=== PATIENT | male | born 1945 | race Two or more races ===

== ENCOUNTER 2023-11-09 07:34 | Inpatient (IN) | payer OTHER, MEDICAID ==
[~2023-11-09] VITALS: Ht 167.6 cm; Wt 76.5 kg
[2023-11-09] MEDS ORDERED: MELO7.5T7 PO (08:42)
[2023-11-09 10:07] LABS: Basophils # (auto) 0 10 ^3/uL (0-0.2); Basophils % (auto) 0.4 % (0.0-2.0); Eosinophils # (auto) 0.3 10 ^3/uL (0-0.8); Eosinophils % (auto) 2.9 % (0.0-7.0); Hematocrit 41.6 % (41.0-53.0); Hemoglobin 13.7 g/dL (13.5-17.5); Lymphocytes # (auto) 1.8 10 ^3/uL (0.4-5.4); Lymphocytes % (auto) 16.5 % (10.0-50.0); Mean Corpuscular Hemoglobin 27.2 pg (28.0-32.0); Mean Corpuscular Hgb Conc. 32.9 g/dL (32.0-36.0); Mean Corpuscular Volume 82.6 fL (80.0-100.0); Monocytes # (auto) 0.8 10 ^3/uL (0-1.3); Monocytes % (auto) 7.8 % (0.0-12.0); Neutrophils # (auto) 7.8 10 ^3/uL (1.6-8.6); Neutrophils % (auto) 72.4 % (37.0-80.0); Nucleated Red Blood Cells % 0.1 %; Red Blood Cells 5.03 10^6/uL (4.5-5.90); Red Cell Distribution Width 15.2 % (11.8-14.3); White Blood Cell 10.8 10^3/uL (4.4-10.8)
[2023-11-09 10:20] LABS: Alanine Aminotransferase 25 U/L (7-40); Albumin 4.5 g/dL (3.2-4.8); Alkaline Phosphatase 106 U/L (46-116); Anion Gap 8 (5-15); Aspartate Aminotransferase 17 U/L (13-40); BUN/Creatinine Ratio 11.4 (10.0-20.0); Bilirubin, Total 0.8 mg/dL (0.2-1.0); Blood Urea Nitrogen 9 mg/dL (9-23); Carbon Dioxide 26 mmol/L (20-30); Chloride 105 mmol/L (98-107); Glucose 111 mg/dL (74-106); Potassium 4.3 mmol/L (3.5-5.1); Sodium 139 mmol/L (136-145); Total Protein 7.2 g/dL (5.7-8.2)
[2023-11-09] MEDS ORDERED: ONDANSETRON HCL 4 MG/2 ML VIAL IV PRN (11:45)
[2023-11-09] MEDS ORDERED: DOCUSATE SOD 100 MG CAP PO PRN ×2 (11:45→12:15)
[2023-11-09] MEDS ORDERED: MORPHINE SULFATE INJ 2 MG/ml SYRG IV PRN ×2 (11:45→12:15)
[2023-11-09] MEDS: SODIUM CHLORIDE 0.9% 1,000 ML IV SCH (11:45)
[2023-11-09] MEDS ORDERED: NITROGLYCERIN 0.4 MG SL TAB SL PRN (12:15)
[2023-11-09 13:18] LABS: INR 1.05 (0.9-1.15); Prothrombin Time 11.1 sec (9.3-11.8)
[2023-11-09 15:17] VITALS: PULSE 75; RESP 13; O2SAT 95
[2023-11-09] MEDS: ONDANSETRON HCL 4 MG/2 ML VIAL IV PRN (19:05)
[2023-11-09] MEDS: MORPHINE SULFATE INJ 2 MG/ml SYRG IV PRN (19:05)
[2023-11-09] MEDS: ONDANSETRON HCL 4 MG/2 ML VIAL ONE (19:15)
[2023-11-09] MEDS: MORPHINE SULFATE INJ 2 MG/ml SYRG ONE (19:15)
[2023-11-09 20:00] VITALS: PULSE 77; RESP 15; O2SAT 94
[2023-11-09 21:50] VITALS: BP 199/95; PULSE 78; RESP 20; TEMP 97.9; O2SAT 95
[2023-11-09] MEDS ORDERED: LISI20TA56 PO (22:30)
[2023-11-09] MEDS ORDERED: MET50T PO (22:30)
[2023-11-09] MEDS ORDERED: POM INH (22:30)
[2023-11-09 22:32] VITALS: BP 199/95; PULSE 78; RESP 19; RESP 20; TEMP 97.9; O2SAT 95
[2023-11-09] MEDS: hydrALAZINE HCL 20 MG/ML VL IV PRN (23:51)
[2023-11-10] VITALS (7 sets, daily range): BP systolic 135–187; BP diastolic 79–96; PULSE 81–99; RESP 16–20; TEMP 97.5–98.4; O2SAT 92–99
[2023-11-10 06:23] LABS: Urine Bacteria None Seen /hpf (None Seen)
[2023-11-10 06:31] LABS: Basophils # (auto) 0.1 10 ^3/uL (0-0.2); Basophils % (auto) 0.6 % (0.0-2.0); Eosinophils # (auto) 0.5 10 ^3/uL (0-0.8); Eosinophils % (auto) 4.9 % (0.0-7.0); Hematocrit 39.6 % (41.0-53.0); Hemoglobin 13.2 g/dL (13.5-17.5); Lymphocytes # (auto) 2.2 10 ^3/uL (0.4-5.4); Lymphocytes % (auto) 22.8 % (10.0-50.0); Mean Corpuscular Hemoglobin 27.7 pg (28.0-32.0); Mean Corpuscular Hgb Conc. 33.4 g/dL (32.0-36.0); Mean Corpuscular Volume 83.1 fL (80.0-100.0); Monocytes # (auto) 0.7 10 ^3/uL (0-1.3); Monocytes % (auto) 7.9 % (0.0-12.0); Neutrophils % (auto) 63.8 % (37.0-80.0); Nucleated Red Blood Cells % 0.3 %; Red Blood Cells 4.77 10^6/uL (4.5-5.90); Red Cell Distribution Width 15.7 % (11.8-14.3); White Blood Cell 9.5 10^3/uL (4.4-10.8)
[2023-11-10 06:38] LABS: Alanine Aminotransferase 18 U/L (7-40); Albumin 4.1 g/dL (3.2-4.8); Alkaline Phosphatase 103 U/L (46-116); Anion Gap 9 (5-15); Aspartate Aminotransferase 14 U/L (13-40); BUN/Creatinine Ratio 10.8 (10.0-20.0); Bilirubin, Total 0.9 mg/dL (0.2-1.0); Blood Urea Nitrogen 8 mg/dL (9-23); Calcium 9.6 mg/dL (8.5-10.1); Carbon Dioxide 24 mmol/L (20-30); Chloride 105 mmol/L (98-107); Glucose 111 mg/dL (74-106); Potassium 3.7 mmol/L (3.5-5.1); Sodium 138 mmol/L (136-145); Total Protein 6.6 g/dL (5.7-8.2)
[2023-11-10] MEDS ORDERED: DexAMETHasone SOD PHOS 4 MG/1ML SDV INJ ONE (06:41)
[2023-11-10] MEDS ORDERED: BUPIVACAINE 0.25% INJ 50ML VIAL ONE (06:41)
[2023-11-10] MEDS ORDERED: EPINEPHrine HCL 1 MG/1 ML AMP ONE (06:41)
[2023-11-10] MEDS ORDERED: ONDANSETRON HCL 4 MG/2 ML VIAL ONE (06:53)
[2023-11-10] MEDS ORDERED: KETOROLAC TROMETH 30 MG/ML 1ML VIAL ONE (06:53)
[2023-11-10] MEDS ORDERED: LIDOCAINE 1% INJ PF 5ML AMP ONE (06:53)
[2023-11-10] MEDS ORDERED: KETAMINE 50mg/ML 1ml syringe ONE (06:53)
[2023-11-10] MEDS ORDERED: fentaNYL CITRATE 100 MCG/2 ML VL ONE (06:53)
[2023-11-10] MEDS ORDERED: GLYCOPYRROLATE 0.2 MG/ML 1ML VIAL ONE (06:53)
[2023-11-10] MEDS ORDERED: DexAMETHasone SOD PHOS 10MG/1ML VIAL INJ ONE (06:53)
[2023-11-10] MEDS ORDERED: PROPOFOL 10 MG/ML 20 ML IV ONE (06:53)
[2023-11-10] MEDS ORDERED: LIDOCAINE 2%HCL (LOCAL ANESTH.) INJ 10ml MDV ONE (07:00)
[2023-11-10 07:01] LABS: Urine Blood Negative /uL (Negative); Urine Clarity Clear (Clear); Urine Color Yellow (Yellow); Urine Protein, UAD Negative (Negative); Urine Specific Gravity 1.014 (1.001-1.035); Urine Urobilinogen Normal (Negative); Urine WBC 1 /hpf (0 - 3)
[2023-11-10] MEDS ORDERED: GABAPENTIN 100 MG CAP PO ONE (07:15)
[2023-11-10] MEDS ORDERED: ACETAMINOPHEN IV 1000 MG/100ML (10MG/ML) IV ONE (07:15)
[2023-11-10] MEDS ORDERED: CELECOXIB 100 MG CAP PO ONE (07:15)
[2023-11-10] MEDS ORDERED: ceFAZolin 2 GM/D5W50ml 50 ML IV ONE (07:20)
[2023-11-10] MEDS ORDERED: ACETAMINOPHEN IV 100 ML IV ONE (07:20)
[2023-11-10] MEDS ORDERED: CELECOXIB 100 MG CAP ONE (07:21)
[2023-11-10] MEDS ORDERED: GABAPENTIN 100 MG CAP ONE (07:21)
[2023-11-10] MEDS ORDERED: LISINOPRIL 20 MG TAB PO ONE (16:45)
[2023-11-10] MEDS ORDERED: METOPROLOL TARTRATE 50 MG TAB PO ONE (16:45)
[2023-11-11] VITALS (10 sets, daily range): BP systolic 133–184; BP diastolic 74–106; PULSE 75–90; RESP 14–18; TEMP 97.2–99; O2SAT 94–98
[2023-11-11] MEDS ORDERED: METOPROLOL TARTRATE 50 MG TAB PO SCH (10:00)
[2023-11-11] MEDS: LISINOPRIL 20 MG TAB PO SCH (10:04)
[2023-11-11] MEDS: METOPROLOL SUCCINATE XL 50 MG TAB PO SCH (10:05)
[2023-11-11 11:33] LABS: INR 1.09 (0.9-1.15); Partial Thromboplastin Time 27.8 SEC (24.5-34.5); Prothrombin Time 11.5 sec (9.3-11.8)
[2023-11-11] MEDS ORDERED: ceFAZolin 2 GM/D5W50ml 50 ML IV ONE (11:36)
[2023-11-11] MEDS ORDERED: LIDOCAINE W/ EPINEPHRINE 1% 20ML VIAL ONE ×2 (11:42→17:34)
[2023-11-11] MEDS ORDERED: fentaNYL CITRATE 100 MCG/2 ML VL ONE (11:51)
[2023-11-11] MEDS ORDERED: MIDAZOLAM HCL 2MG/2ML 2ml VIAL (1mg/ml) ONE (11:51)
[2023-11-11] MEDS ORDERED: PROPOFOL 10 MG/ML 20 ML IV ONE (11:52)
[2023-11-11] MEDS ORDERED: ONDANSETRON HCL 4 MG/2 ML VIAL ONE (11:53)
[2023-11-11] MEDS ORDERED: LIDOCAINE 1% INJ PF 5ML AMP ONE (11:53)
[2023-11-11] MEDS ORDERED: HYDROmorphone HCL 2 MG/ML VL/or syr IV PRN (12:45)
[2023-11-11] MEDS ORDERED: ONDANSETRON HCL 4 MG/2 ML VIAL IV ONE (12:45)
[2023-11-11] MEDS: D5W/SOD CHL 0.45%/KCL 20MEQ 1,000 ML IV SCH (13:00)
[2023-11-11] MEDS: HYDROmorphone HCL 2 MG/ML VL/or syr IV PRN (13:08)
[2023-11-11] MEDS ORDERED: ceFAZolin 1GM/50ML 50 ML IV SCH (14:00)
[2023-11-11] MEDS: ceFAZolin 1GM/50ML 50 ML IV SCH (21:17)
[2023-11-12] VITALS (8 sets, daily range): BP systolic 108–153; BP diastolic 62–96; PULSE 85–103; RESP 16–20; TEMP 36.7; O2SAT 91–95
[2023-11-12] MEDS ORDERED: HYDR-4902 PO (10:35)
== END 2023-11-12 13:50 | disposition home or self-care (01) | DRG 511 ==
LOC: ER 07:39 → OVERFLOW 12:06 → EAST 21:50
PROVIDERS: ADMIT Nurse Practitioner Family; ATTEND Family Medicine
PROC: 0PSH04Z Reposition Right Radius with Internal Fixation Device, Open Approach (ICD-10-PCS; principal; 2023-11-11 11:48)
DX: S52.91XA Unspecified fracture of right forearm, initial encounter for closed fracture (principal); I16.1 Hypertensive emergency; S52.611A Displaced fracture of right ulna styloid process, initial encounter for closed fracture; J45.909 Unspecified asthma, uncomplicated; E66.9 Obesity, unspecified; I10 Essential (primary) hypertension; Z85.46 Personal history of malignant neoplasm of prostate; Z68.27 Body mass index [BMI] 27.0-27.9, adult; Z82.49 Family history of ischemic heart disease and other diseases of the circulatory system; W18.39XA Other fall on same level, initial encounter; Y93.89 Activity, other specified; Y92.89 Other specified places as the place of occurrence of the external cause; Y99.8 Other external cause status
CPT/HCPCS: 36415; 71045; 73100; 76000; 80053; 81001; 85025; 85610; 85730; 86850; 86900; 86901; 93005; 93306; G0378; J0131; J0171; J1100; J1885; J2001; J2250; J2405; J2704; J3490

== ENCOUNTER → 2024-04-25 | Outpatient (CLI) | payer OTHER, MEDICAID ==
[~2024-04-25] MED LIST: HYDR-4902 PO; LISI20TA56 PO; MET50T PO; POM INH
[2024-04-25 09:00] LABS: Urine Bacteria None Seen /hpf (None Seen); Urine WBC None Seen /hpf (0 - 3)
[2024-04-25 09:03] LABS: Basophils # (auto) 0 10 ^3/uL (0-0.2); Basophils % (auto) 0.6 % (0.0-2.0); Eosinophils # (auto) 0.3 10 ^3/uL (0-0.8); Eosinophils % (auto) 3.4 % (0.0-7.0); Hematocrit 43.7 % (41.0-53.0); Hemoglobin 14.6 g/dL (13.5-17.5); Lymphocytes # (auto) 2.3 10 ^3/uL (0.4-5.4); Lymphocytes % (auto) 26.8 % (10.0-50.0); Mean Corpuscular Hemoglobin 28.1 pg (28.0-32.0); Mean Corpuscular Hgb Conc. 33.3 g/dL (32.0-36.0); Mean Corpuscular Volume 84.2 fL (80.0-100.0); Monocytes # (auto) 0.6 10 ^3/uL (0-1.3); Monocytes % (auto) 7.4 % (0.0-12.0); Neutrophils # (auto) 5.3 10 ^3/uL (1.6-8.6); Neutrophils % (auto) 61.8 % (37.0-80.0); Nucleated Red Blood Cells % 0.1 %; Platelet Count (auto) 245 10^3/uL (140-450); Red Cell Distribution Width 14.7 % (11.8-14.3); White Blood Cell 8.5 10^3/uL (4.4-10.8)
[2024-04-25 09:13] LABS: Urine Blood Negative /uL (Negative); Urine Clarity Clear (Clear); Urine Color Light-Yellow (Yellow); Urine Protein, UAD TRACE (Negative); Urine Specific Gravity 1.015 (1.001-1.035); Urine Urobilinogen Normal (Negative); Urine pH 5.5 (5.0-9.0)
[2024-04-25 10:05] LABS: Calcium 10.4 mg/dL (8.7-10.4); Chloride 105 mmol/L (98-107); Potassium 4.5 mmol/L (3.5-5.1); Sodium 138 mmol/L (136-145)
[2024-04-25 10:06] LABS: Anion Gap 5 (5-15); Carbon Dioxide 28 mmol/L (20-31)
[2024-04-25 10:11] LABS: BUN/Creatinine Ratio 10.9 (10.0-20.0); Blood Urea Nitrogen 10 mg/dL (9-23)
[2024-04-25 10:12] LABS: Glucose 127 mg/dL (74-106)
== END | disposition home or self-care (01) ==
LOC: LAB 08:42
PROVIDERS: ATTEND Student in an Organized Health Care Education/Training Program
DX: I10 Essential (primary) hypertension (principal); E11.9 Type 2 diabetes mellitus without complications
CPT/HCPCS: 36415; 80048; 81001; 83036; 85025

== ENCOUNTER 2024-07-04 12:56 | Inpatient (IN) | payer OTHER, MEDICAID ==
[~2024-07-04] VITALS: Ht 157.5 cm; Wt 154.0 kg
[2024-07-04] MEDS: ASPirin-EC 325mg tab PO ONE (13:15)
--- NOTE | 2024-07-04 13:17 | ED.PDOC ---
HPI Comments HPI: 79 y/o M, presents to the ED for CC of chest pain. Patient states, that he has been experiencing right sided chest pain that radiates to his lower back x30 min following gardening at home. Patient describes, pain to be pressure like in sensation. Patient comments on, new onset symptoms of nausea following episode. Patient denies fatigue, weakness, headache, numbness or weakness. No other symptoms or modifying factors at this time. Initial Vital Signs: Temp : 97.6 BP: 125/92 HR: 59 RR: 18 SpO2: 94 Past Medical History: HTN Past Surgical History: HAND, PROSTATE, HERNIA Social History: Denies smoking, ETOH, or drug use. Medications: LISINOPRIL Allergies: OBINNADA Minh Garcia: HPI: Poor Historian. Past Medical History: Past Surgical History: REVIEW OF SYSTEMS: CONSTITUTIONAL: Denies acute: fever, diaphoresis, chills, HEAD: Denies acute: headache, photophobia Eyes: Denies acute: Double vision, vision loss, eye pain, eye discharge. EARS: Denies acute: tinnitus, hearing loss, ear discharge, ear pain, THROAT: Denies acute: sore throat, swelling, difficulty swallowing , pain with swallowing, change in voice. NECK: Denies acute: neck pain, neck swelling, stiff neck. HEART: Denies acute : , palpitations, LUNGS: Denies acute: SOB, wheezing, cough, hemoptysis ABDOMEN: Denies acute: abdominal pain, , Vomiting, diarrhea, melena , hematemesis, hematochezia SKIN: Denies acute: rash, redness, lesions, itchiness. EXTREMITIES: Denies acute: calf pain, numbness, tingling, weakness, denies pain in extremity. Denies acute: Low back pain. Neuro: Denies acute: focal neurological deficit, motor or sensory focal neurological deficit, tremors, seizure like activity, confusion, , change in mental status, loss of bowel or bladder function, cauda equina like symptoms. : Denies acute: dysuria, hematuria, flank pain, increase in urinary frequency. PSYCH: Denies acute: hallucination, suicidal ideation, homicidal ideation. PHYSICAL EXAM: General: [id number] acute distress, awake and alert. Head: normocephalic, atraumatic. Neck: supple, trachea is midline, no swelling. Throat: Normal phonation. Eyes:, no erythema, no purulent discharge, no proptosis, no icterus. Heart: regular rate, regular rhythm, no significant murmur appreciated. Lungs: no apparent respiratory distress, Able to speak in full sentences. No wheezing, no rhonchi, no crackles. No stridors Clear to auscultation bilaterally. Abdomen: non tender to palpation, non distended, soft, no guarding, no rebound, + bowel sounds. Neuro: Awake, Alert, oriented to name, self, situation, follows commands GCS=15. Speech is normal. Skin: no petechia, no purpura, no cyanosis, non-pale, not jaundice. Lower extremities: --trace- Pitting edema no deformity, no focal swelling, no calf TTP. Makes eye contact. moves all four extremities. Face: no apparent facial droop. Ambulating in the ED independently. With a cane ED COURSE: Chief Complaint: Chest Pain Time Seen by MD: 13:10 Primary Care Provider: UNKNOWN Reviewed Notes: Nurses Notes, Medications, Allergies Allergies: Coded Allergies: NO KNOWN ALLERGIES (Unverified , 11/09/23) Home Meds Active Scripts Hydrocodone-Acetaminophen (Hydrocodone Bitartrate/AC 5-325 mg) 1 Tab Tab, 1 TAB PO Q6HR PRN, #30 TAB Prov:SUSHANT STEVENSON MD 11/12/23 Reported Medications Patients Own Medication (PATIENTS OWN MEDICATION) ., 100 MCG INH PTS OWN MED-OBTAIN FROM PT AND SEND TO RX DRUG: FREQ: RX# EXP: DATE DISP: TECH: RPH: 11/09/23 Metoprolol Tartrate (LOPRESSOR TABLET) 50 Mg Tb, 1 TAB PO DAILY 11/09/23 Lisinopril (Lisinopril) 20 Mg Tab, 1 TAB PO DAILY 11/09/23 Information Source: Patient Mode of Arrival: Ambulatory Severity: Moderate Timing: Minutes Duration: Since onset Prehospital treatment: None Location: Chest (R) Radiation: Back Quality: Pressure Onset: With Light Exertion Cardiac Risk Factors: None PE Risk Factors: None History of: None Modifying Factors: Nothing Associated Signs and Symptoms: None Was a procedure done? Was a procedure done?: No CP Differential Dx Differential Diagnosis: N/A Differential Diagnosis: Other (Ddx include but not limitied to gastritis, musculoskeletal pain, radiculopathy, atypical chest pain, dissection, aneurysm, ACS, unstable angina, hiatal hernia, GERD, anxiety, costochondritis, PE, pneumothroax, neoplasm, cardiac ischemia, drug abuse, anemia.) X-Ray, Labs, Meds, VS Vital Signs Date Time Temp Pulse Resp B/P (MAP) Pulse Ox O2 Delivery O2 Flow Rate FiO2 07/04/24 20:35 98.0 54 18 128/77 (94) 92 98.0 07/04/24 19:40 61 07/04/24 16:03 59 07/04/24 13:48 54 07/04/24 13:11 97.6 59 18 125/90 (102) 94 134/73 (93) 07/04/24 13:02 61 Lab Test 07/04/24 17:39 07/04/24 15:26 07/04/24 13:02 Range/Units Troponin I High Sensitivity 264 *H 75 *H 14 </=54 ng/L White Blood Count 14.2 H 4.4-10.8 10^3/uL Red Blood Count 5.45 4.5-5.90 10^6/uL Hemoglobin 14.6 13.5-17.5 g/dL Hematocrit 45.0 41.0-53.0 % Mean Corpuscular Volume 82.6 80.0-100.0 fL Mean Corpuscular Hemoglobin 26.7 L 28.0-32.0 pg Mean Corpuscular Hemoglobin Concent 32.4 32.0-36.0 g/dL Red Cell Distribution Width 15.5 H 11.8-14.3 % Platelet Count 302 140-450 10^3/uL Mean Platelet Volume 8.8 6.9-10.8 fL Neutrophils (%) (Auto) 61.4 37.0-80.0 % Lymphocytes (%) (Auto) 29.8 10.0-50.0 % Monocytes (%) (Auto) 6.7 0.0-12.0 % Eosinophils (%) (Auto) 1.7 0.0-7.0 % Basophils (%) (Auto) 0.4 0.0-2.0 % Neutrophils # (Auto) 8.7 H 1.6-8.6 10 ^3/uL Lymphocytes # (Auto) 4.2 0.4-5.4 10 ^3/uL Monocytes # (Auto) 1.0 0-1.3 10 ^3/uL Eosinophils # (Auto) 0.2 0-0.8 10 ^3/uL Basophils # (Auto) 0.1 0-0.2 10 ^3/uL Nucleated Red Blood Cells 0.1 % Sodium Level 140 136-145 mmol/L Potassium Level 3.7 3.5-5.1 mmol/L Chloride Level 106 98-107 mmol/L Carbon Dioxide Level 22 20-31 mmol/L Anion Gap 12 5-15 Blood Urea Nitrogen 11 9-23 mg/dL Creatinine 1.07 0.700-1.30 mg/dL Glomerular Filtration Rate Calc 71 >90 mL/min BUN/Creatinine Ratio 10.3 10.0-20.0 Serum Glucose 179 H 74-106 mg/dL Calcium Level 10.3 8.7-10.4 mg/dL Total Bilirubin 0.7 0.2-1.0 mg/dL Aspartate Amino Transferase (AST) 26 13-40 U/L Alanine Aminotransferase (ALT) 33 7-40 U/L Alkaline Phosphatase 88 46-116 U/L Total Protein 7.3 5.7-8.2 g/dL Albumin 4.8 3.2-4.8 g/dL [place] [id number] Ph: [phone] DIAGNOSTIC IMAGING Diagnostic Imaging Report : [id number] Signed PATIENT: JENNIFER SEECCT: [id number] UNIT: [id number] : 1945 LOC: ER ROOM / BED: / AGE / SEX: 79 / M ADM STATUS: REG ER SERVICE 1301 ORDERING PHYSICIAN: JEANA MORENO DO PROCEDURE(s): CXRP - CHEST PORTABLE REASON: CP ORDER NUMBER(s): [id number], ACCESSION NUMBER(s): [id number] CHEST RADIOGRAPH Indication: CP Technique: Single frontal view of the chest was obtained COMPARISON: XY CHEST PORTABLE on DOS: 11/09/23 FINDINGS: Lines and Tubes: None Lungs: Diffuse increased interstitial prominence. Pleura: No effusion. No pneumothorax. Cardiomediastinal contours: Unremarkable Bones: Unremarkable IMPRESSION: Chronic fibrotic changes with possible superimposed pulmonary vascular congestion or atypical pneumonia. ATED BY: HAIR GTZ MD DICTATED DATE/TIME: 07/04/242 SIGNED BY: HAIR GTZ MD SIGNED DATE/TIME: 07/04/24 132 CC: Time of 1ST Reevaluation: 13:40 Reevaluation 1ST: Unchanged Patient Education/Counseling: Diagnosis, Treatment Family Education/Counseling: No Family Present Comments Patient presented with the above HPI.--- CHEST PAIN ---workup was initiated. patient was found with the above mentioned diagnosis. the following medications were ordered: ASPIRIN ENTERIC, NITROGLYCERIN SUBLINGUAL, CEFTRIAXONE please refer to order lists of meds and tests obtained by myself Dr. Moreno. Patient ED course and VS have been stabilized. Patient has been reassessed in the ED and remained in a stable condition. Pertinent incidental findings were discussed with the patient and/or family. Patient/family voices understanding and is agreeable with plan. Patient has been observed in the ED adequate length of time to insure improvement/stability. Escalation of care considered: Consideration of escalation to observation or admission Patient was ADMITTED to the medicine team for further evaluation and treatment of their presentation. All the reports of any imaging studies that were ordered by myself were reviewed by myself. Departure 1 Departure Time of Disposition: 13:30 Impression: Primary Impression: Chest pain Additional Impression: NSTEMI (non-ST elevated myocardial infarction) Disposition: 09 ADMITTED INPATIENT Admit to: Tele Condition: Guarded Additional Instructions: [place] [id number] Ph: [phone] DIAGNOSTIC IMAGING Diagnostic Imaging Report : [id number] Signed PATIENT: HEBER SEE ACCT: [id number] UNIT: [id number] : 1945 LOC: ER ROOM / BED: / AGE / SEX: 79 / M ADM STATUS: REG ER SERVICE 1301 ORDERING PHYSICIAN: JEANA MORENO DO PROCEDURE(s): CXRP - CHEST PORTABLE REASON: CP ORDER NUMBER(s): [id number], ACCESSION NUMBER(s): [id number] CHEST RADIOGRAPH Indication: CP Technique: Single frontal view of the chest was obtained COMPARISON: XY CHEST PORTABLE on DOS: 11/09/23 FINDINGS: Lines and Tubes: None Lungs: Diffuse increased interstitial prominence. Pleura: No effusion. No pneumothorax. Cardiomediastinal contours: Unremarkable Bones: Unremarkable IMPRESSION: Chronic fibrotic changes with possible superimposed pulmonary vascular congestion or atypical pneumonia. ATED BY: HAIR GTZ MD DICTATED DATE/TIME: 07/04/24 1322 SIGNED BY: HAIR GTZ MD SIGNED DATE/TIME: 07/04/24 1322 CC: Discharged With: Self Critical Care Note Critical Care Time?: Yes (45 min-critical care time only) Heart Score Heart Score: Heart Score Response (Comments) Value History Moderate Suspicious 1 EKG Normal 0 Age >65 2 Risk Factors 1 or 2 risk factors 1 Troponin >3 x's Normal limit 2 Total 6 I personally scribed for JEANA MORENO DO ([email or web address]) on 07/04/24 at 13:17. Electronically submitted by Nataly Lucio ([email or web address]). I personally scribed for JEANA MORENO DO ([email or web address]) on 07/04/24 at 14:11. Electronically submitted by Nataly Lucio ([email or web address]). I personally scribed for JEANA MORENO DO ([email or web address]) on 07/04/24 at 15:40. Electronically submitted by Nataly Lucio ([email or web address]). I personally scribed for JEANA MORENO DO ([email or web address]) on 07/04/24 at 15:43. Electronically submitted by Nataly Lucio ([email or web address]). JEANA MORENO DO Jul 04, 2024 13:17
--- NOTE | 2024-07-04 13:24 | DVH ---
CHEST RADIOGRAPH Indication: CP Technique: Single frontal view of the chest was obtained COMPARISON: XY CHEST PORTABLE on DOS: 11/09/23 FINDINGS: Lines and Tubes: None Lungs: Diffuse increased interstitial prominence. Pleura: No effusion. No pneumothorax. Cardiomediastinal contours: Unremarkable Bones: Unremarkable IMPRESSION: Chronic fibrotic changes with possible superimposed pulmonary vascular congestion or atypical pneumon ia.
[2024-07-04 13:48] LABS: Basophils # (auto) 0.1 10 ^3/uL (0-0.2); Mean Corpuscular Volume 82.6 fL (80.0-100.0)
[2024-07-04 13:51] LABS: Basophils % (auto) 0.4 % (0.0-2.0); Eosinophils # (auto) 0.2 10 ^3/uL (0-0.8); Eosinophils % (auto) 1.7 % (0.0-7.0); Hemoglobin 14.6 g/dL (13.5-17.5); Lymphocytes # (auto) 4.2 10 ^3/uL (0.4-5.4); Lymphocytes % (auto) 29.8 % (10.0-50.0); Mean Corpuscular Hemoglobin 26.7 pg (28.0-32.0); Mean Corpuscular Hgb Conc. 32.4 g/dL (32.0-36.0); Monocytes % (auto) 6.7 % (0.0-12.0); Neutrophils # (auto) 8.7 10 ^3/uL (1.6-8.6); Neutrophils % (auto) 61.4 % (37.0-80.0); Nucleated Red Blood Cells % 0.1 %; Platelet Count (auto) 302 10^3/uL (140-450); Red Blood Cells 5.45 10^6/uL (4.5-5.90); Red Cell Distribution Width 15.5 % (11.8-14.3); White Blood Cell 14.2 10^3/uL (4.4-10.8)
[2024-07-04 14:14] LABS: Alanine Aminotransferase 33 U/L (7-40); Albumin 4.8 g/dL (3.2-4.8); Alkaline Phosphatase 88 U/L (46-116); Anion Gap 12 (5-15); Aspartate Aminotransferase 26 U/L (13-40); BUN/Creatinine Ratio 10.3 (10.0-20.0); Bilirubin, Total 0.7 mg/dL (0.2-1.0); Blood Urea Nitrogen 11 mg/dL (9-23); Calcium 10.3 mg/dL (8.7-10.4); Carbon Dioxide 22 mmol/L (20-31); Chloride 106 mmol/L (98-107); Glucose 179 mg/dL (74-106); Potassium 3.7 mmol/L (3.5-5.1); Sodium 140 mmol/L (136-145); Total Protein 7.3 g/dL (5.7-8.2)
[2024-07-04] MEDS: cefTRIAXone 1GM/50ML D5W 50 ML IV ONE (14:45)
--- NOTE | 2024-07-04 16:06 | ECG ---
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
[2024-07-04] MEDS ORDERED: SODIUM CHLORIDE 0.9% 1,000 ML IV SCH (21:15)
[2024-07-04] MEDS ORDERED: MORPHINE SULFATE INJ 2 MG/ml SYRG IV PRN (21:15)
[2024-07-04] MEDS ORDERED: NITROGLYCERIN 0.4 MG SL TAB SL PRN (21:15)
[2024-07-04 21:46] LABS: Basophils # (auto) 0.1 10 ^3/uL (0-0.2); Basophils % (auto) 0.4 % (0.0-2.0); Eosinophils # (auto) 0 10 ^3/uL (0-0.8); Eosinophils % (auto) 0.4 % (0.0-7.0); Hematocrit 44.8 % (41.0-53.0); Hemoglobin 14.5 g/dL (13.5-17.5); Lymphocytes # (auto) 1.5 10 ^3/uL (0.4-5.4); Lymphocytes % (auto) 12.1 % (10.0-50.0); Mean Corpuscular Hemoglobin 26.5 pg (28.0-32.0); Mean Corpuscular Hgb Conc. 32.3 g/dL (32.0-36.0); Mean Corpuscular Volume 82.3 fL (80.0-100.0); Monocytes # (auto) 0.7 10 ^3/uL (0-1.3); Monocytes % (auto) 5.5 % (0.0-12.0); Neutrophils # (auto) 9.9 10 ^3/uL (1.6-8.6); Neutrophils % (auto) 81.6 % (37.0-80.0); Nucleated Red Blood Cells % 0.1 %; Platelet Count (auto) 262 10^3/uL (140-450); Red Blood Cells 5.45 10^6/uL (4.5-5.90); Red Cell Distribution Width 16.1 % (11.8-14.3); White Blood Cell 12.1 10^3/uL (4.4-10.8)
--- NOTE | 2024-07-04 21:58 | DVHHPRES ---
History of Present Illness Resident Creating Document: MILLY SU RESIDENT History of Present Illness HEBER SEE is a 79-year-old male with a PMH of HTN, prostate cancer, asthma presented to the ED with the chief complaints of chest pain which started afternoon on the day of admission. Patient is [place]-speaking, history obtained with the grandson, today morning while watering plants patient developed sudden onset of right-sided chest pain, pressure-like, 8 of 10 intensity, radiating to the right shoulder and back, no aggravating or relieving factors associated with vomiting, dizziness, pale and thirsty which prompted him to visit ED. patient reported he never experienced symptoms like this in past. On my assessment patient denies recent flu-like illness, fever, diaphoresis, headache and other acute associated symptoms PMH: HTN, asthma, prostate cancer 5 years ago PSH: Almost surgery, hernia repair Family history: Reviewed, noncontributory Social history: Lives with family. Occasional alcohol abuse but no smoking or other drug abuse Allergies: No known allergies Home medications: Review of Systems Review of Systems Patient seen and examined at the bedside. Constitutional: No: Fever, Chills, Sweats, Weakness, Malaise, Other ENT: No: Ear pain, Ear discharge, Nose pain, Nose discharge, Nose congestion, Mouth pain, Mouth swelling, Throat pain, Throat swelling, Other Respiratory: No: Cough, Dry, Shortness of breath, SOB with excertion, Wheezing, Hemoptysis, Pleuritic Pain, Sputum, Wheezing, Other Cardiovascular: Chest Pain Gastrointestinal: No: Nausea, Vomiting, Abdominal Pain, Diarrhea, Constipation, Melena, Hematochezia, Other Genitourinary: No Dysuria, No Frequency, No Incontinence, No Hematuria, No Retention, No Other Musculoskeletal: shoulder pain (right) Skin: No: Rash, Lesions, Jaundice, Bruising, Other Neurological: No: Weakness, Numbness, Incoordination, Change in speech, Confusion, Seizures, Other Allergies: Coded Allergies: NO KNOWN ALLERGIES (Unverified , 11/09/23) Medications Current Medications Medications Dose Ordered Sig/Therese Route Start Time Stop Time Status Last Admin Dose Admin Sodium Chloride 10 ml Q8HR IV 07/04/24 22:00 Sodium Chloride 1,000 ml @ 60 mls/hr [id number] IV 07/04/24 21:15 Enoxaparin Sodium 40 mg DAILY SC 07/05/24 10:00 Acetaminophen 650 mg Q6HP PRN PO 07/04/24 21:15 Morphine Sulfate 2 mg Q4HPRN PRN IV 07/04/24 21:15 Nitroglycerin 0.4 mg Q5MINP PRN SL 07/04/24 21:15 Morphine Sulfate 2 mg Q30M PRN IV 07/04/24 21:15 Aspirin 81 mg DAILY PO 07/05/24 10:00 UNV Ceftriaxone Sodium 50 ml @ 100 mls/hr DAILY IV 07/05/24 10:00 UNV Azithromycin 250 ml @ 125 mls/hr DAILY IV 07/04/24 22:00 UNV Pantoprazole Sodium 40 mg DAILY IV 07/05/24 10:00 UNV Exam Vital Signs Vital Signs Date Time Temp Pulse Resp B/P (MAP) Pulse Ox O2 Delivery O2 Flow Rate FiO2 07/04/24 20:35 98.0 54 18 128/77 (94) 92 98.0 Exam Pt is lying on bed General Appearance: Alert, Oriented X3, Cooperative, mild distress HEENT: Atraumatic, Mucous membranes moist/pink Respiratory: Clear to auscultation, Normal air movement Cardiovascular: Right-sided chest tenderness, arm tenderness with the moment. Regular rate, Normal S1, Normal S2 Abdominal: Active bowel sounds, Soft, no distention, no tenderness Extremities: Right upper extremity tenderness and limited range of motion. No edema, Normal pulses, No tenderness/swelling. Skin: No Significant rash, except past surgical scars Neuro: Normal speech, sensorimotor deficits none Psych/Mental Status: Mental status NL, Mood NL Nurse was there as sharperone during examination Labs/Xrays Labs Test 07/04/24 21:30 Range/Units White Blood Count 12.1 H 4.4-10.8 10^3/uL Red Blood Count 5.45 4.5-5.90 10^6/uL Hemoglobin 14.5 13.5-17.5 g/dL Hematocrit 44.8 41.0-53.0 % Mean Corpuscular Volume 82.3 80.0-100.0 fL Mean Corpuscular Hemoglobin 26.5 L 28.0-32.0 pg Mean Corpuscular Hemoglobin Concent 32.3 32.0-36.0 g/dL Red Cell Distribution Width 16.1 H 11.8-14.3 % Platelet Count 262 140-450 10^3/uL Mean Platelet Volume 8.4 6.9-10.8 fL Neutrophils (%) (Auto) 81.6 H 37.0-80.0 % Lymphocytes (%) (Auto) 12.1 10.0-50.0 % Monocytes (%) (Auto) 5.5 0.0-12.0 % Eosinophils (%) (Auto) 0.4 0.0-7.0 % Basophils (%) (Auto) 0.4 0.0-2.0 % Neutrophils # (Auto) 9.9 H 1.6-8.6 10 ^3/uL Lymphocytes # (Auto) 1.5 0.4-5.4 10 ^3/uL Monocytes # (Auto) 0.7 0-1.3 10 ^3/uL Eosinophils # (Auto) 0 0-0.8 10 ^3/uL Basophils # (Auto) 0.1 0-0.2 10 ^3/uL Nucleated Red Blood Cells 0.1 % Assessment/Plan Assessment/Plan # rule out ACS # ? NSTEMI - reviewed 12 lead EKG - troponins were elevated - chest pain protocol - Aspirin and clopidogrel loading dose and then maintenance dose -started heparin drip -consulted cardiology # Possible Chostochondritis # ? Acute Gram+/- bacterial PNA # rule out Sepsis - CXR showing chronic changes the with possible vascular congestion or atypical pneumonia - respiratory cultures - rocephin and azithro # GERD -Protonix PUD PPX: Protonix VTE PPX: Heparin drip Diet: Cardiac diet Goals of care discussed with the patient and family for more than 27 minutes: Full code status Case management discussed with Dr. Interiano, patient and nurse Plan discussed with: Patient, Daughter My Orders Orders - MILLY SU RESIDENT Procedure Category Date Status Time Admit ADMIT 07/04/24 Transmitted 21:12 Allergies CARIDAD 07/04/24 In Process 21:12 Code Status CODE 07/04/24 Transmitted 21:12 Sodium Chloride Lock PHA 07/04/24 In Process (Saline Lock Ns) 22:00 Sodium Chloride 0.9% PHA 07/04/24 In Process 21:15 Enoxaparin Sodium PHA 07/05/24 In Process (Lovenox) 10:00 Complete Blood Count LAB 07/05/24 Verified 04:00 Comprehensive LAB 07/05/24 Verified Metabolic Panel 04:00 Cardiac DIET 07/05/24 Transmitted Diet-2gna,Lofat,Lochol Breakfast Echo 2d Mode Cardiac US 07/04/24 Logged DOP 21:12 Condition: Stable CARIDAD 07/04/24 In Process 21:12 Acetaminophen Tablet PHA 07/04/24 In Process (Tylenol Tablet) 21:15 Morphine Sulfate PHA 07/04/24 In Process Injection 21:15 Nitroglycerin PHA 07/04/24 In Process Sublingual (Ntrostat 21:15 Morphine Sulfate PHA 07/04/24 In Process Injection 21:15 Oxygen By Nasal RT 07/04/24 Transmitted Cannula 21:12 Stat Ekg For Chest CARIDAD 07/04/24 In Process Pain 21:12 Notify Of Changes CARIDAD 07/04/24 In Process From Base 21:12 Iron Melter For CARIDAD 07/04/24 In Process 24 Hours 21:12 Emergency Dysrhythmia CARIDAD 07/04/24 In Process Protocol 21:12 Rhythm Strips Once [facility] 07/04/24 In Process Every Shift 21:12 Comprehensive LAB 07/04/24 In Process Metabolic Panel 21:15 Rapid Influenza A&B LAB 07/04/24 Logged 21:15 Covid19 Antigen [facility]iona LAB 07/04/24 Logged Troponin-I Hs LAB 07/04/24 In Process 21:16 Magnesium LAB 07/04/24 In Process 21:32 PTPTT LAB 07/04/24 In Process 21:32 Lactic Acid W/ Reflex LAB 07/04/24 Logged Order 21:32 Urinalysis LAB 07/04/24 Logged 21:32 Thyroid Stimulating LAB 07/04/24 In Process Hormone 21:32 Drug Screen LAB 07/04/24 Logged 21:32 D-Dimer LAB 07/04/24 In Process 21:32 Blood Alcohol LAB 07/04/24 In Process 21:32 Aspirin Tablet PHA 07/05/24 Logged 10:00 Ceftriaxone 1gm/50ml PHA 07/05/24 Logged D5w (Rocephin) 10:00 Azithromycin 500mg/ PHA 07/04/24 Logged 250ml (Zithromax 50 22:00 Pantoprazole PHA 07/05/24 Logged (Protonix) 10:00 R Shoulder 1v Xray XY 07/04/24 Logged 21:55 Urine Bacterial ELENI 07/04/24 Uncollected Culture 21:56 Date of Service: Jul 04, 2024 Billing Provider: MARTÍN INTERIANO MD Common Visit Codes: 60904-[id number] INP/OBS CARE (HIGH) Secondary Visit Codes: 60166-[id number] CARE PLAN 30 MINUTES MILLY SU RESIDENT Jul 04, 2024 21:58 MARTÍN INTERIANO MD Jul 05, 2024 08:42
[2024-07-04 22:06] LABS: Alanine Aminotransferase 39 U/L (7-40); Albumin 4.7 g/dL (3.2-4.8); Alkaline Phosphatase 90 U/L (46-116); Anion Gap 12 (5-15); BUN/Creatinine Ratio 13.3 (10.0-20.0); Bilirubin, Total 0.6 mg/dL (0.2-1.0); Blood Urea Nitrogen 11 mg/dL (9-23); Calcium 10.3 mg/dL (8.7-10.4); Carbon Dioxide 21 mmol/L (20-31); Chloride 105 mmol/L (98-107); INR 1.05 (0.9-1.15); Potassium 4.6 mmol/L (3.5-5.1); Prothrombin Time 11.1 sec (9.3-11.8); Sodium 138 mmol/L (136-145); Total Protein 6.9 g/dL (5.7-8.2)
[2024-07-04 22:11] LABS: Aspartate Aminotransferase 61 U/L (13-40); Glucose 146 mg/dL (74-106)
[2024-07-04 22:21] LABS: Blood Alcohol < 3.0 mg/dL (<10)
[2024-07-04] MEDS: HEPARIN SODIUM (PORCINE) 5000 UNITS/ML 1ML VIAL IV ONE ×2 (22:30→23:05)
[2024-07-04] MEDS: HEPARIN DRIP/D5W 100UNITS/ML 250 ML IV SCH (23:11)
[2024-07-04] MEDS: NITROGLYCERIN 0.4 MG SL TAB SL ONE ×2 (23:20→23:41)
[2024-07-04] MEDS: SODIUM CHLOR 0.9% PF (SALINE LOCK) 10ML VIAL/SYR IV SCH (23:25)
--- NOTE | 2024-07-04 23:42 | DVH ---
CLINICAL INDICATION: pain TECHNIQUE: XY R SHOULDER 1V XRAY Comparison: None FINDINGS: IMPRESSION: Single AP radiograph of the right shoulder demonstrates no abnormality.
[2024-07-04 23:57] LABS: Triglycerides 139 mg/dL (< 150)
[2024-07-04] MEDS: ONDANSETRON HCL 4 MG/2 ML VIAL IV ONE (23:58)
[2024-07-04 23:59] LABS: Cholesterol 191 mg/dL (< 200); HDL Cholesterol 46 mg/dL (40-59)
[2024-07-04] MEDS: MORPHINE SULFATE INJ 2 MG/ml SYRG IV PRN (23:59)
[2024-07-05] VITALS (10 sets, daily range): BP systolic 121–156; BP diastolic 76–97; PULSE 63–91; RESP 12–18; TEMP 97.8–98.2; O2SAT 93–100
[2024-07-05] MEDS: cefTRIAXone 1GM/50ML D5W 50 ML IV SCH (00:08)
[2024-07-05 00:09] LABS: LDL Cholesterol 125 mg/dL (< 100)
[2024-07-05] MEDS: SODIUM CHLORIDE 0.9% 1,000 ML IV SCH ×2 (00:09→17:00)
[2024-07-05] MEDS: ATORVASTATIN 20 MG TAB PO ONE (00:46)
[2024-07-05] MEDS: CLOPIDOGREL BISULFATE 75 MG TAB PO ONE (00:47)
[2024-07-05] MEDS: AZITHROMYCIN 500MG/ 250ML 250 ML IV SCH (00:52)
[2024-07-05 03:35] LABS: Basophils # (auto) 0 10 ^3/uL (0-0.2); Basophils % (auto) 0.4 % (0.0-2.0); Eosinophils # (auto) 0.1 10 ^3/uL (0-0.8); Mean Corpuscular Volume 81.8 fL (80.0-100.0); Monocytes # (auto) 0.7 10 ^3/uL (0-1.3); White Blood Cell 10.7 10^3/uL (4.4-10.8)
[2024-07-05 03:38] LABS: Eosinophils % (auto) 0.7 % (0.0-7.0); Hematocrit 42.7 % (41.0-53.0); Lymphocytes # (auto) 1.8 10 ^3/uL (0.4-5.4); Mean Corpuscular Hemoglobin 26.8 pg (28.0-32.0); Mean Corpuscular Hgb Conc. 32.8 g/dL (32.0-36.0); Monocytes % (auto) 6.7 % (0.0-12.0); Neutrophils # (auto) 8.1 10 ^3/uL (1.6-8.6); Neutrophils % (auto) 75.2 % (37.0-80.0); Platelet Count (auto) 237 10^3/uL (140-450); Red Blood Cells 5.22 10^6/uL (4.5-5.90); Red Cell Distribution Width 15.8 % (11.8-14.3)
[2024-07-05 03:41] LABS: Alanine Aminotransferase 37 U/L (7-40); Albumin 4.5 g/dL (3.2-4.8); Alkaline Phosphatase 81 U/L (46-116); Anion Gap 10 (5-15); Calcium 9.9 mg/dL (8.7-10.4); Carbon Dioxide 21 mmol/L (20-31); Chloride 104 mmol/L (98-107); Potassium 3.6 mmol/L (3.5-5.1)
[2024-07-05 03:42] LABS: Bilirubin, Total 0.6 mg/dL (0.2-1.0); Total Protein 6.7 g/dL (5.7-8.2)
[2024-07-05 03:56] LABS: Aspartate Aminotransferase 102 U/L (13-40); Blood Urea Nitrogen 8 mg/dL (9-23); Glucose 155 mg/dL (74-106); Sodium 135 mmol/L (136-145)
--- NOTE | 2024-07-05 04:37 | DVH ---
CTA Chest with intravenous contrast INDICATION: cp COMPARISON: Chest radiograph performed on 07/04/2024 TECHNIQUE: Multidetector spiral CTA of the chest was performed of the chest with cc of intravenous c ontrast. PULMONARY ANGIOGRAPHY PROTOCOL was utilized using a bolus-tracking technique centered on the main pulmonary artery. Coronal and sagittal multiplanar and MIP reformats were performed. Radiation Dose : 1. Chest: CTDI volume is 8.88 mGy. Dose-length product is 905.25 mGy*cm The dose indicators for CT are the volume Computed Tomography (CT) Dose Index (CTDIvol) and the Dose Length Product (DLP), and are measured in units of mGy and mGy-cm, respectively. These indicators are not patient dose, but values generated from the CT scanner acquisition factors. The report includes radiation exposure data for exposures received during this examination. FINDINGS: Pulmonary artery: No central, lobar or proximal segmental pulmonary embolus. Normal caliber main pul monary artery. Lower neck: Normal thyroid. Lungs: Emphysema. Bilateral interlobular septal thickening which may reflect fibrosis. No focal ai rspace disease. Central airways: Patent. Pleura: No pneumothorax. No pleural effusions. Heart/Vascular Structures: The heart is normal in size. No pericardial effusion. Coronary artery didi cifications. Thoracic aorta is normal in caliber. No aneurysm or dissection. Lymph Nodes: No mediastinal or hilar lymphadenopathy. Esophagus:Grossly unremarkable. Musculoskeletal: Unremarkable. Body wall: Unremarkable. Upper abdomen: Unremarkable. IMPRESSION: 1. No evidence of pulmonary embolism. 2. 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 No focal airspace disease. 3. Coronary artery calcifications.
--- NOTE | 2024-07-05 05:21 | ECG ---
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
--- NOTE | 2024-07-05 06:31 | ECG ---
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
[2024-07-05 06:32] LABS: INR 1.08 (0.9-1.15); Partial Thromboplastin Time 47.1 SEC (24.5-34.5); Prothrombin Time 11.4 sec (9.3-11.8)
[2024-07-05 07:45] LABS: Urine Bacteria None Seen /hpf (None Seen)
[2024-07-05 08:00] LABS: Urine Blood Negative /uL (Negative); Urine Clarity Clear (Clear); Urine Color Light-Yellow (Yellow); Urine Protein, UAD TRACE (Negative); Urine Squamous Epithelial Cell None Seen /hpf (<5); Urine Urobilinogen Normal (Negative); Urine WBC 1 /HPF (0-3)
[2024-07-05 08:02] LABS: Urine Specific Gravity 1.045 (1.001-1.035)
[2024-07-05] MEDS ORDERED: LORazepam 0.5 MG TAB PO ONE (08:15)
[2024-07-05 08:18] LABS: Opiate Scree,Urine Neg (NEGATIVE)
[2024-07-05 08:22] LABS: Amphetamine Screen, Urine Neg (NEGATIVE); Barbiturate Scree,Urine Neg (NEGATIVE); Benzodiazephine Screen, Urine Neg (NEGATIVE); Cannabinoid Screen, Urine Neg (NEGATIVE); Phencyclidine Screen, Urine Neg (NEGATIVE)
[2024-07-05 08:31] LABS: Cocaine Screen, Urine Neg (NEGATIVE)
[2024-07-05] MEDS ORDERED: HEPARIN DRIP/D5W 100UNITS/ML 250 ML IV SCH (09:15)
[2024-07-05 10:00] LABS: INR 1.05 (0.9-1.15); Partial Thromboplastin Time 42.5 SEC (24.5-34.5); Prothrombin Time 11.1 sec (9.3-11.8)
[2024-07-05] MEDS ORDERED: ENOXAPARIN SOD 40 MG/0.4 ML SYRINGE SC SCH (10:00)
[2024-07-05] MEDS ORDERED: IODIXANOL 320MG/ML 100ML BTL IV ONE ×3 (13:15→15:17)
[2024-07-05] MEDS ORDERED: HEPARIN IN NS 1000Units/500mL 1,500 ML ONE (13:15)
[2024-07-05] MEDS ORDERED: VERAPAMIL 2.5MG/ML INJ 2ML VIAL IV ONE ×2 (13:17→13:24)
[2024-07-05] MEDS ORDERED: HEPARIN SODIUM (PORCINE) 5000 UNITS/ML 1ML VIAL ONE (13:17)
[2024-07-05] MEDS ORDERED: ANGIOMAX 250 MG VIAL IV ONE ×2 (13:17→14:50)
[2024-07-05] MEDS ORDERED: SODIUM CHL 0.9% 50 ML ONE ×2 (13:18→14:50)
[2024-07-05] MEDS ORDERED: fentaNYL CITRATE 100 MCG/2 ML VL ONE (13:18)
[2024-07-05] MEDS ORDERED: LIDOCAINE 2%HCL (LOCAL ANESTH.) INJ 20ML MDV ONE (13:18)
[2024-07-05] MEDS ORDERED: MIDAZOLAM HCL 2MG/2ML 2ml VIAL (1mg/ml) ONE ×2 (13:18→15:49)
[2024-07-05] MEDS ORDERED: CLOPIDOGREL BISULFATE 75 MG TAB ONE (16:08)
[2024-07-05] MEDS: ASPirin 81 mg TAB PO SCH (16:13)
[2024-07-05] MEDS: CLOPIDOGREL BISULFATE 75 MG TAB PO SCH (16:13)
--- NOTE | 2024-07-05 16:46 | DVHOP2 ---
Operative Report - 2 Report Details Date: 07/05/24 Preop Diagnosis: CAD. Non-STEMI. Postop Diagnosis: Triple-vessel disease. Occluded LAD. Anterior hypokinesis. Normal LV function. Surgeon: Ruddy Castro MD Anesthesiologist: Conscious sedation Anesthesia: Mac, Local (Patient received conscious sedation with the Versed and fentanyl. I personally monitored the patient throughout the entirety of the procedure. No complications.) Consent: The patient was informed of the risks and benefits of the procedure. These include but are not limited to complications of anesthesia, postoperative infection, incomplete relief of symptoms, recurrence of symptoms, damage to blood vessels, nerves and tendons, deep venous thrombosis, pulmonary embolism and possible need for repeat surgery in the future. Estimated Blood Loss: 5 cc. Findings: Triple-vessel disease. Normal LV function mild anterior hypokinesis. Indications for Surgery: Non ST-elevation PA. Chest pain. Name of Procedure Performed Left heart catheterization. Bilateral cine coronary angiography. Ventriculography. PTCA and stenting of the LAD and circumflex coronary artery. Intravascular ultrasound of the left anterior descending. Procedure Details Procedure Details: Prior local anesthesia with 2% lidocaine to the right wrist and full informed consent obtained patient was prepped and draped in usual fashion followed by placement of a six Thai sheath into the right radial artery through which a Kole catheter was used for ventriculography and cannulation of both right and left coronary ostia. A 3.5 EBU guiding catheter was then used for angioplasty of the circumflex and LAD. An IVUS catheter by Soukboard was used for evaluation of the LAD. Hemodynamics: Aortic blood pressure was 130/70. End-diastolic pressure was 15. There was no gradient across the aortic valve on pullback. Coronary anatomy. The right coronary artery has moderate plaquing and calcification. The distal RCA has a 99% stenosis. PDA has a 99% ostial stenosis. The posterolateral branch distal to the origin of the PDA has a 95% stenosis. Left main is large and normal. Left anterior descending is 100% occluded with minor faint filling of the mid to distal LAD. The circumflex is a large vessel. It has proximal 90% stenosis. The large acute marginal branch has a 99% stenosis. The distal circumflex proper is occluded. Ventriculography: Ventriculography in the EWING projection shows an EF of 60% anterior hypokinesis Plasty was performed for which five guide was then placed a Guidezilla placed to enhance the access of the left anterior descending. Placed a wire across the area of stenosis placed a two five of the LAD distal to once revealed small neuro S1 ultrasound stenosis of about 2 mm which was a long tubular lesion LAD proximal diagonal three/two. After pre dilatation we stented the LAD two five 12 stent. This was dilated to 20 atmospheres least score distal to performed several inflations. Used to to five stent to mid and distal. There was excellent thrombus formation dissection placed wire into the circumflex difficult trying to access the circumflex used c atheters and wires access the obtuse marginal branch. We used a PrecisionHawk catheter and directed a wire which was a whisper wire into the marginal branch. There was a significant spiraling dissection. We were able to get into the true lumen pre dilate with a two five balloon. We placed a two five by 24 into the circumflex and marginal branch. Distal to the stent there was another d issection for which we placed a 2.5 mm x 22 stent distal to the initial stent. This was a Lookmashtronic drug-eluting stent. There was some haziness at the circumflex ostium for which we placed a 3-0 by 8 mm stent and subsequently removed the Guidezilla and angiographic evaluation revealed excellent antegrade flow through both LAD and circumflex vessels Impression: Normal left ventricular ejection fraction with anterior hypokinesis. Three-vessel coronary artery disease as delineated above. Successful angioplasty and stenting of the LAD and circumflex. Recommendations a staged procedure will be performed to the RCA in the near future. Condition Good Disposition Still a Patient Date of Service: Jul 05, 2024 Billing Provider: RUDDY CASTRO Sr., MD Cardiology Common Codes: 08749-[id number] INP/OBS CARE (High) Cardiology Procedure Codes: 76746 -PTCA W/STENT PLACEMENT, 59903-LQCO ADD CORONARY BRANCH, 75101-VNWD FOR STEMI W/STENT, 95248-ERID ADD COR ART/BRNCH/GRFT RUDDY CASTRO Sr., MD Jul 05, 2024 16:46
--- NOTE | 2024-07-05 16:56 | DVHPNRES ---
Progress Note Date Seen: Jul 05, 2024 Resident Creating Document: ALAN SANTOS RESIDENT Medical Necessity Reason Pt with a Central, PICC or Fol: No Subjective Review of Systems Jose Gonsalves is a 79-year-old male patient who presented to the ED with the chief complaints of right-sided oppressive chest pain in functional class IV, which radiated towards right shoulder and back, intensity 8/10 which started afternoon on the day of admission associated with vomiting, dizziness, diaphoresis which prompted him to visit ED. Patient reported he never experienced symptoms like this in past. Denies palpitation, syncope, dyspnea, diarrhea, recent travel, sick contacts and motor or sensory deficits Past medical history: HTN, asthma, prostate cancer 5 years ago s/p resection (no chemotherapy) Surgical history: Prostate surgery, hernia repair Family history: Noncontributory Social history: Lives with family. Occasional alcohol consumption. Denies current tobacco, alcohol and other drug abuse. Allergies: No known allergies Home medications: Metoprolol and lisinopril Patient seen and examined at bedside. Patient evaluated before left heart catheterization, he was asymptomatic for chest pain. Objective vital signs Vital Sign Date Time Temp Pulse Resp B/P (MAP) Pulse Ox O2 Delivery O2 Flow Rate FiO2 07/05/24 08:17 63 13 96 Nasal Cannula* 2 28 07/05/24 08:00 131/76 (94) 07/04/24 20:35 98.0 98.0 Total Intake and Output 07/04/24 07/04/24 07/05/24 15:00 23:00 07:00 Intake Total 900 ml Balance 900 ml medications Current Medications Medications Dose Ordered Sig/Therese Route Start Time Stop Time Status Last Admin Dose Admin Sodium Chloride 10 ml Q8HR IV 07/04/24 22:00 07/05/24 06:10 10 ML Acetaminophen 650 mg Q6HP PRN PO 07/04/24 21:15 Morphine Sulfate 2 mg Q4HPRN PRN IV 07/04/24 21:15 Nitroglycerin 0.4 mg Q5MINP PRN SL 07/04/24 21:15 Morphine Sulfate 2 mg Q30M PRN IV 07/04/24 21:15 07/04/24 23:59 2 MG Aspirin 81 mg DAILY PO 07/05/24 10:00 Pantoprazole Sodium 40 mg DAILY IV 07/05/24 10:00 Clopidogrel Bisulfate 75 mg DAILY PO 07/05/24 10:00 Atorvastatin Calcium 40 mg HS PO 07/05/24 22:00 Carvedilol 3.125 mg Q12HR PO 07/05/24 22:00 UNV Lisinopril 10 mg DAILY PO 07/06/24 10:00 UNV Examination Patient lying in bed, in no acute distress General: Lucid, afebrile, mucosae are moist Cardiovascular: Normal S1 and S2. No murmurs, gallops or rubs Respiratory: Normal ventilation mechanics. Clear lung sounds on auscultation Abdomen: Soft, nontender, no organomegaly, normal bowel sounds MSK/skin: Mobilizes 4 limbs. Skin is dry and warm Neurological: Oriented in 3 spheres. No motor no sensitive deficits. Pupils are isocoric and reactive laboratory and microbiology Laboratory Tests 07/05/24 03:07 Test 07/05/24 03:07 Range/Units Serum Glucose 155 H 74-106 mg/dL Problem List/Assessment/Plan Problem List/Assessment/Plan # Moderate-risk NSTEMI type I (CAPRICE: 4, PINEDA: 137, Crusade: 21 points) EKG shows normal sinus rhythm at 70 beats per minute, no ST alteration Positive troponin (1st set negative, then increase up to 2900) Patient presented chest pain in functional class IV, responded to nitroglycerin and morphine Patient on triple therapy (aspirin, clopidogrel and heparin drip) Cardiology consulted. Completed left heart catheterization completing PCI to LAD, marginal and circumflex due to severe chronic stenosis, pending report. Planning on staging RCA PCI for Wednesday Pending echocardiogram # Ruled out pneumonia, sepsis Chest x-ray shows congestion # GERD -Protonix # Newly diagnosed diabetes (hemoglobin A1c 6.7%) On insulin sliding scale # Dyslipidemia LDL 127. Goal of LDL should be less than 45 due to ME # History of prostate cancer status post resection Monitor # Asthma no exacerbation No need for bronchodilators at the moment of evaluation Goals of care discussed with the patient and family for more than 27 minutes: Full code status Discussed plan with Dr. He, patient and nurses: Completed coronary angiography with placement of three stents in LAD, circumflex and marginal arteries due to chronic severe occlusion. Planning on staging RCA PCI due to severe lesion on Wednesday. Patient is status telemetry. Plan discussed with: Patient, Other (Nurses) My Orders My Orders Orders - ALAN SANTOS RESIDENT Procedure Category Date Status Time Npo Except For CARIDAD 07/06/24 In Process Medications 00:01 Obtain Consent For: ORDERS 07/05/24 Transmitted 08:08 Hold Enoxaparin Day CARIDAD 07/06/24 In Process Of Procedu 00:01 D/C Tlc CARIDAD 07/05/24 In Process 08:08 Shave Both Groins [facility] 07/05/24 In Process 08:08 Provide Education [facility] 07/05/24 In Process Materials 08:08 Cl Left Heart Cath CL 07/05/24 Taken 08:08 Comprehensive LAB 07/07/24 Verified Metabolic Panel 04:00 Obtain Consent For [facility] 07/05/24 In Process Anesthesia 08:08 Date of Service: Jul 05, 2024 Billing Provider: CHOLO HE MD Common Visit Codes: [id number] INP/OBS CARE(HIGH) ALAN SANTOS RESIDENT Jul 05, 2024 16:56 CHOLO HE MD Jul 07, 2024 16:12
[2024-07-05] MEDS ORDERED: OMEP20TA PO (19:16)
[2024-07-05] MEDS: ATORVASTATIN 20 MG TAB PO SCH (21:44)
[2024-07-05] MEDS: CARVEDILOL 3.125 MG TAB PO SCH (21:44)
[2024-07-06] VITALS (8 sets, daily range): BP systolic 82–100; BP diastolic 45–68; PULSE 73–95; RESP 12–20; TEMP 97.8–98.2; O2SAT 92–95
[2024-07-06 06:15] LABS: COVID19 ANTIGEN SOFIA FIA NEGATIVE (NEGATIVE); Rapid Influenza A Negative (Negative); Rapid Influenza B Negative (Negative)
[2024-07-06 07:17] LABS: Basophils # (auto) 0 10 ^3/uL (0-0.2); Eosinophils # (auto) 0.2 10 ^3/uL (0-0.8); Lymphocytes # (auto) 1.6 10 ^3/uL (0.4-5.4); Monocytes # (auto) 0.8 10 ^3/uL (0-1.3)
[2024-07-06 07:18] LABS: INR 1.06 (0.9-1.15); Partial Thromboplastin Time 28.2 SEC (24.5-34.5); Prothrombin Time 11.2 sec (9.3-11.8)
[2024-07-06 07:20] LABS: Albumin 4.1 g/dL (3.2-4.8); Alkaline Phosphatase 77 U/L (46-116); Anion Gap 11 (5-15); BUN/Creatinine Ratio 10.6 (10.0-20.0); Basophils % (auto) 0.3 % (0.0-2.0); Blood Urea Nitrogen 11 mg/dL (9-23); Calcium 9.6 mg/dL (8.7-10.4); Carbon Dioxide 22 mmol/L (20-31); Chloride 104 mmol/L (98-107); Eosinophils % (auto) 1.7 % (0.0-7.0); Hematocrit 41.8 % (41.0-53.0); Hemoglobin 13.7 g/dL (13.5-17.5); Lymphocytes % (auto) 16.4 % (10.0-50.0); Mean Corpuscular Hemoglobin 26.8 pg (28.0-32.0); Mean Corpuscular Hgb Conc. 32.8 g/dL (32.0-36.0); Mean Corpuscular Volume 81.6 fL (80.0-100.0); Monocytes % (auto) 8.2 % (0.0-12.0); Neutrophils # (auto) 7.3 10 ^3/uL (1.6-8.6); Neutrophils % (auto) 73.4 % (37.0-80.0); Platelet Count (auto) 215 10^3/uL (140-450); Potassium 3.5 mmol/L (3.5-5.1); Red Blood Cells 5.13 10^6/uL (4.5-5.90); Red Cell Distribution Width 15.8 % (11.8-14.3); Sodium 137 mmol/L (136-145); Total Protein 6.2 g/dL (5.7-8.2)
[2024-07-06 07:22] LABS: Alanine Aminotransferase 40 U/L (7-40); Aspartate Aminotransferase 134 U/L (13-40); Glucose 183 mg/dL (74-106)
[2024-07-06] MEDS: PANTOPRAZOLE 40 MG/10 ML VIAL INJ IV SCH (10:00)
[2024-07-06] MEDS: LISINOPRIL 5 MG TAB PO SCH (11:16)
[2024-07-06] MEDS: POTASSIUM EFFERVESENT TAB 25 MEQ PO ONE (11:17)
[2024-07-06] MEDS: ENOXAPARIN SOD 40 MG/0.4 ML SYRINGE SC SCH (11:17)
--- NOTE | 2024-07-06 15:07 | DVHSR ---
APPROVED REPORT EXAM: Two-dimensional and M-mode echocardiogram with Doppler and color Doppler. Blood Pressure: 95/61 mmHg INDICATION Chest Pain RISK FACTORS Height: 5'2", Weight: 151 DIMENSIONS LVDd4.3 (3.8-5.7cm)LA (2D)3.5 (1.9-4.0cm)Aortic Root3.3 (2.0-3.7cm) LVDs2.7 (2.5-4.0cm)LA (MM) (1.9-4.0cm)Aortic Cusp Exc1.5 (1.5-2.0cm) EF (%) 65.0 (55-70%)Rt. Atrium (1.9-4.0cm)Asc. Aorta3.1 cm IVSd1.4 (0.7-1.1cm)RV (D) (1.8-2.4cm) PWd0.7 (0.7-1.1cm) Mitral Valve MitralMitral Stenosis E wave0.35m/sMV Mean GR.mmHg A wave0.68m/sMV Peak GR.mmHg E/A ratio0.52D MVAcm2 DECEL [id number] 1/2 Timems Aortic Valve Aortic ValveAortic Stenosis V10.84m/Dominick Mean GR.3mmHg V21.09m/Dominick Peak GR.5mmHg LVOT Diameter2.2 (1.8-2.4cm)Doppler AVA2.93cm2 Pulmonic Valve V20.83m/s Tricuspid Valve TR Velocity2.18m/s [id number] Other Information Quality : Technically LimitedRhythm : Technically limited study due to body habitus. Conclusion lvef 40-45 % by visual estimate apex is hypokinetic , mioderate LVH RV not well seen left atrium enlarged mild mild tricuspid regurg
--- NOTE | 2024-07-06 17:11 | DVHPNRES ---
Progress Note Date Seen: Jul 06, 2024 Resident Creating Document: ALAN SANTOS RESIDENT Medical Necessity Reason Pt with a Central, PICC or Fol: No Subjective Review of Systems Jose Gonsalves is a 79-year-old male patient who presented to the ED with the chief complaints of right-sided oppressive chest pain in functional class IV, which radiated towards right shoulder and back, intensity 8/10 which started afternoon on the day of admission associated with vomiting, dizziness, diaphoresis which prompted him to visit ED. Patient reported he never experienced symptoms like this in past. Denies palpitation, syncope, dyspnea, diarrhea, recent travel, sick contacts and motor or sensory deficits Past medical history: HTN, asthma, prostate cancer 5 years ago s/p resection (no chemotherapy) Surgical history: Prostate surgery, hernia repair Family history: Noncontributory Social history: Lives with family. Occasional alcohol consumption. Denies current tobacco, alcohol and other drug abuse. Allergies: No known allergies Home medications: Metoprolol and lisinopril Patient seen and examined at bedside. Patient currently has no complaints, has not been feeling chest pain since after his admission. Objective vital signs Vital Sign Date Time Temp Pulse Resp B/P (MAP) Pulse Ox O2 Delivery O2 Flow Rate FiO2 07/06/24 13:00 97.8 84 18 100/68 (79) 93 97.8 07/06/24 08:00 Room Air* 0 21 Total Intake and Output 07/05/24 07/05/24 07/06/24 15:00 23:00 07:00 Intake Total 262 ml 400 ml Output Total 0 ml Balance 262 ml 400 ml medications Current Medications Medications Dose Ordered Sig/Therese Route Start Time Stop Time Status Last Admin Dose Admin Sodium Chloride 10 ml Q8HR IV 07/04/24 22:00 07/06/24 14:00 10 ML Acetaminophen 650 mg Q6HP PRN PO 07/04/24 21:15 Nitroglycerin 0.4 mg Q5MINP PRN SL 07/04/24 21:15 Morphine Sulfate 2 mg Q30M PRN IV 07/04/24 21:15 07/04/24 23:59 2 MG Aspirin 81 mg DAILY PO 07/05/24 10:00 07/06/24 11:15 81 MG Pantoprazole Sodium 40 mg DAILY IV 07/05/24 10:00 07/06/24 11:17 40 MG Clopidogrel Bisulfate 75 mg DAILY PO 07/05/24 10:00 07/06/24 11:16 75 MG Atorvastatin Calcium 40 mg HS PO 07/05/24 22:00 07/05/24 21:44 40 MG Carvedilol 3.125 mg Q12HR PO 07/05/24 22:00 07/06/24 11:16 3.125 MG Lisinopril 10 mg DAILY PO 07/06/24 10:00 07/06/24 11:16 10 MG Sodium Chloride 1,000 ml @ 50 mls/hr Q20H IV 07/05/24 17:00 Enoxaparin Sodium 40 mg DAILY SC 07/06/24 10:00 07/06/24 11:17 40 MG Examination Patient lying in bed, in no acute distress General: Lucid, afebrile, mucosae are moist Cardiovascular: Normal S1 and S2. No murmurs, gallops or rubs Respiratory: Normal ventilation mechanics. Clear lung sounds on auscultation Abdomen: Soft, nontender, no organomegaly, normal bowel sounds MSK/skin: Mobilizes 4 limbs. Skin is dry and warm. Puncture site on right wrist with no hematoma and no murmur Neurological: Oriented in 3 spheres. No motor no sensitive deficits. Pupils are isocoric and reactive laboratory and microbiology Laboratory Tests 07/06/24 05:36 Test 07/06/24 05:36 Range/Units Serum Glucose 183 H 74-106 mg/dL Problem List/Assessment/Plan Problem List/Assessment/Plan # Moderate-risk NSTEMI type I (CAPRICE: 4, PINEDA: 137, Crusade: 21 points) EKG shows normal sinus rhythm at 70 beats per minute, no ST alteration Positive troponin (1st set negative, then increase up to 2900) Patient presented to ED chest pain in functional class IV, responded to nitroglycerin and morphine Patient currently on DAPT (aspirin and clopidogrel). Have discontinued heparin drip Cardiology consulted: Completed coronary angiography which shows chronically occluded mid LAD, PDA 99% ostial, RCA 99% distal, circumflex 90% proximal and occluded distally, marginal 99%. Completed PCI to LAD and circumflex we will total of four stents placed. 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 Goal of LDL should be less than 45 due to [place] # History of prostate cancer status post resection Monitor # Asthma no exacerbation No need for bronchodilators at the moment of evaluation Goals of care discussed with the patient and family for more than 27 minutes: Full code status Discussed plan with Dr. He, patient and nurses: Completed coronary angiography with PCI with placement of four stents to LAD and circumflex. Planning on staging RCA PCI due to severe lesion on Wednesday. Patient is status telemetry. Plan discussed with: Patient, Spouse, Son, Other (Nurses) My Orders My Orders Orders - ALAN SANTOS Procedure Category Date Status Time Enoxaparin Sodium PHA 07/06/24 In Process (Lovenox) 10:00 Cardiac DIET 07/06/24 Transmitted Diet-2gna,Lofat,Lochol Lunch Npo After Midnight DIET 07/06/24 Transmitted Lunch Date of Service: Jul 06, 2024 Billing Provider: CHOLO HE MD Common Visit Codes: [id number] INP/OBS CARE(HIGH) ALAN SANTOS Jul 06, 2024 17:11 CHOLO HE MD Jul 07, 2024 16:13
[2024-07-07] VITALS (12 sets, daily range): BP systolic 95–149; BP diastolic 55–98; PULSE 65–101; RESP 14–76; TEMP 97.5–99.1; O2SAT 91–97
[2024-07-07 07:04] LABS: Basophils # (auto) 0 10 ^3/uL (0-0.2); Eosinophils # (auto) 0.3 10 ^3/uL (0-0.8); Monocytes # (auto) 0.9 10 ^3/uL (0-1.3)
[2024-07-07 07:08] LABS: Basophils % (auto) 0.5 % (0.0-2.0); Eosinophils % (auto) 2.9 % (0.0-7.0); Hematocrit 38.6 % (41.0-53.0); Lymphocytes # (auto) 2.2 10 ^3/uL (0.4-5.4); Lymphocytes % (auto) 23.7 % (10.0-50.0); Mean Corpuscular Hemoglobin 27.5 pg (28.0-32.0); Mean Corpuscular Hgb Conc. 33.6 g/dL (32.0-36.0); Mean Corpuscular Volume 81.7 fL (80.0-100.0); Monocytes % (auto) 9.5 % (0.0-12.0); Neutrophils % (auto) 63.4 % (37.0-80.0); Platelet Count (auto) 190 10^3/uL (140-450); Red Blood Cells 4.72 10^6/uL (4.5-5.90); Red Cell Distribution Width 15.9 % (11.8-14.3); White Blood Cell 9.4 10^3/uL (4.4-10.8)
[2024-07-07 07:24] LABS: Alanine Aminotransferase 28 U/L (7-40); Alkaline Phosphatase 75 U/L (46-116); Anion Gap 9 (5-15); BUN/Creatinine Ratio 14.3 (10.0-20.0); Blood Urea Nitrogen 15 mg/dL (9-23); Calcium 9.5 mg/dL (8.7-10.4); Carbon Dioxide 25 mmol/L (20-31); Chloride 102 mmol/L (98-107); Potassium 4.5 mmol/L (3.5-5.1)
[2024-07-07 07:25] LABS: Aspartate Aminotransferase 69 U/L (13-40); Glucose 124 mg/dL (74-106); Sodium 136 mmol/L (136-145)
[2024-07-07 07:26] LABS: Bilirubin, Total 0.9 mg/dL (0.2-1.0); Total Protein 6.1 g/dL (5.7-8.2)
[2024-07-07] MEDS: HEPARIN SODIUM (PORCINE) 5000 UNITS/ML 1ML VIAL ONE (07:41)
[2024-07-07] MEDS: ANGIOMAX 250 MG VIAL IV ONE (07:41)
[2024-07-07] MEDS: MIDAZOLAM HCL 2MG/2ML 2ml VIAL (1mg/ml) ONE (07:42)
[2024-07-07] MEDS: VERAPAMIL 2.5MG/ML INJ 2ML VIAL IV ONE (07:42)
[2024-07-07] MEDS: fentaNYL CITRATE 100 MCG/2 ML VL ONE (07:42)
[2024-07-07] MEDS: LIDOCAINE 2%HCL (LOCAL ANESTH.) INJ 20ML MDV ONE (07:43)
[2024-07-07] MEDS: SODIUM CHL 0.9% 50 ML ONE (07:43)
[2024-07-07] MEDS ORDERED: GELATIN 1 SPONGE SIZE 50 TOP ONE (09:33)
[2024-07-07] MEDS: IODIXANOL 320MG/ML 100ML BTL IV ONE (09:33)
[2024-07-07] MEDS: CLOPIDOGREL BISULFATE 75 MG TAB ONE (09:51)
[2024-07-07] MEDS: ASPirin 81 mg TAB ONE (09:51)
--- NOTE | 2024-07-07 10:03 | DVHOP2 ---
Operative Report - 2 Report Details Date: 07/07/24 Preop Diagnosis: CAD. Non-STEMI. Postop Diagnosis: Triple-vessel disease. Successful aperture of RCA and PDA. Surgeon: Ruddy Castro MD Anesthesiologist: Conscious sedation Anesthesia: Mac, Local (Patient received conscious sedation with the Versed and fentanyl. I personally monitored the patient throughout the entirety of the procedure. No complications.) Consent: The patient was informed of the risks and benefits of the procedure. These include but are not limited to complications of anesthesia, postoperative infection, incomplete relief of symptoms, recurrence of symptoms, damage to blood vessels, nerves and tendons, deep venous thrombosis, pulmonary embolism and possible need for repeat surgery in the future. Complications: No complications Estimated Blood Loss: 5 cc. Findings: Patent recently open the an angioplasty to LAD. Patent circumflex marginal and circumflex angioplastied on the . Successful aperture of distal posterolateral branch and RCA as well as PDA. Indications for Surgery: Chest pain Name of Procedure Performed Bilateral cine coronary angiography. PTCA and stenting of the RCA posterolateral branch and PDA. Procedure Details Procedure Details: Prior local anesthesia with 2% lidocaine to the right wrist and full informed consent obtained patient was prepped and draped in usual fashion followed by placement of a six Yakut sheath into the right radial artery through which a Kole catheter was used for ventriculography and cannulation of both right and left coronary ostia. A 3.5 EBU guiding catheter was then used for angioplasty of the RCA and PDA. Coronary anatomy. The right coronary artery has moderate plaquing and calcification. The distal RCA has a 99% stenosis. PDA has a 99% ostial stenosis. The posterolateral branch distal to the origin of the PDA has a 95% stenosis. Left main is large and normal. Left anterior descending is patent. The circumflex is patent that was previously angioplastied as well. The RCA as delineated above underwent angioplasty. A 3.5 EBU guide was placed into the RCA. A Specter wire was placed distal into the posterolateral branch and a shockwave balloon was used to treat the distal RCA and posterolateral branch. It was also used to treat the ostium of the PDA. After several treatments performed we placed a two five noncompliant balloon and subsequently placed a 2.5 mm by 12 mm stent into the distal RCA/posterolateral branch. This was a Medtronic avelina drug-eluting stent. We then placed in a kissing balloon fashion a 3-0 by 12 and a two 5 x 12 into the distal RCA and PDA respectively. This was a DK crush technique. After removing the wire from the PDA we replaced it and went to his front with a noncompliant 2.5X 12mm balloon. We then placed a 4.5 mm balloon noncompliant euphoria balloon into the distal RCA and performed balloon kissing technique of the distal RCA/PDA with a two five noncompliant balloon as well. There was ex cellent antegrade flow. No thrombus formation or dissection noted. Impression: Successful PTCA and stenting with intravascular lithotripsy of the RCA and PDA. Condition Good Disposition Still a Patient Date of Service: Jul 07, 2024 Billing Provider: RUDDY CASTRO Sr., MD Cardiology Common Codes: 92498-VBR/OBS SAME DATE (High) Cardiology Procedure Codes: 96943 -PTCA W/STENT PLACEMENT (Angioplasty and lithotripsy of the distal RCA and PDA. Coronary angiography of the right and left coronary system) RUDDY CASTRO Sr., MD Jul 07, 2024 10:03
--- NOTE | 2024-07-07 11:30 | ECG ---
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
--- NOTE | 2024-07-07 13:10 | DVH ---
EXAM: XY CHEST XRAY 1 VIEW Indication: Post PCI Technique: Single frontal view of the chest was obtained Comparison: XY CHEST PORTABLE on DOS: 07/04/24, XY CHEST PORTABLE on DOS: 11/09/23 FINDINGS: Lines and Tubes: None Lungs: No focal consolidation. Pleura: No effusion. No pneumothorax. Cardiomediastinal contours: Cardiomegaly. Bones: No acute osseous abnormality. IMPRESSION: No acute cardiopulmonary disease.
--- NOTE | 2024-07-07 13:52 | ECG ---
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
--- NOTE | 2024-07-07 17:05 | DVHPNRES ---
Progress Note Date Seen: Jul 07, 2024 Resident Creating Document: ALAN SANTOS RESIDENT Medical Necessity Reason Pt with a Central, PICC or Fol: No Subjective Review of Systems Jose Gonsalves is a 79-year-old male patient who presented to the ED with the chief complaints of right-sided oppressive chest pain in functional class IV, which radiated towards right shoulder and back, intensity 8/10 which started afternoon on the day of admission associated with vomiting, dizziness, diaphoresis which prompted him to visit ED. Patient reported he never experienced symptoms like this in past. Denies palpitation, syncope, dyspnea, diarrhea, recent travel, sick contacts and motor or sensory deficits Past medical history: HTN, asthma, prostate cancer 5 years ago s/p resection (no chemotherapy) Surgical history: Prostate surgery, hernia repair Family history: Noncontributory Social history: Lives with family. Occasional alcohol consumption. Denies current tobacco, alcohol and other drug abuse. Allergies: No known allergies Home medications: Metoprolol and lisinopril Patient seen and examined at bedside. Patient currently has no complaints, has not been feeling chest pain since after his admission. Completed staged PCI to RCA and PDA, no new complaints. Objective vital signs Vital Sign Date Time Temp Pulse Resp B/P (MAP) Pulse Ox O2 Delivery O2 Flow Rate FiO2 07/07/24 13:00 97.5 75 15 122/74 (90) 97 97.5 07/07/24 08:00 Room Air* 0 21 Total Intake and Output 07/06/24 07/06/24 07/07/24 15:00 23:00 07:00 Intake Total 600 ml Balance 600 ml medications Current Medications Medications Dose Ordered Sig/Therese Route Start Time Stop Time Status Last Admin Dose Admin Sodium Chloride 10 ml Q8HR IV 07/04/24 22:00 07/07/24 13:23 10 ML Acetaminophen 650 mg Q6HP PRN PO 07/04/24 21:15 Nitroglycerin 0.4 mg Q5MINP PRN SL 07/04/24 21:15 Morphine Sulfate 2 mg Q30M PRN IV 07/04/24 21:15 07/04/24 23:59 2 MG Aspirin 81 mg DAILY PO 07/05/24 10:00 07/06/24 11:15 81 MG Pantoprazole Sodium 40 mg DAILY IV 07/05/24 10:00 07/06/24 11:17 40 MG Clopidogrel Bisulfate 75 mg DAILY PO 07/05/24 10:00 07/06/24 11:16 75 MG Atorvastatin Calcium 40 mg HS PO 07/05/24 22:00 07/06/24 21:31 40 MG Carvedilol 3.125 mg Q12HR PO 07/05/24 22:00 07/06/24 11:16 3.125 MG Lisinopril 10 mg DAILY PO 07/06/24 10:00 07/06/24 11:16 10 MG Sodium Chloride 1,000 ml @ 50 mls/hr Q20H IV 07/05/24 17:00 Enoxaparin Sodium 40 mg DAILY SC 07/06/24 10:00 07/06/24 11:17 40 MG Examination Patient lying in bed, in no acute distress General: Lucid, afebrile, mucosae are moist Cardiovascular: Normal S1 and S2. No murmurs, gallops or rubs Respiratory: Normal ventilation mechanics. Clear lung sounds on auscultation Abdomen: Soft, nontender, no organomegaly, normal bowel sounds MSK/skin: Mobilizes 4 limbs. Skin is dry and warm. Puncture site on right wrist with no hematoma and no murmur Neurological: Oriented in 3 spheres. No motor no sensitive deficits. Pupils are isocoric and reactive laboratory and microbiology Laboratory Tests 07/07/24 05:53 Test 07/07/24 05:53 Range/Units Serum Glucose 124 H 74-106 mg/dL Problem List/Assessment/Plan Problem List/Assessment/Plan # Moderate-risk NSTEMI type I (CAPRICE: 4, PINEDA: 137, Crusade: 21 points) EKG shows normal sinus rhythm at 70 beats per minute, no ST alteration Positive troponin (1st set negative, then increase up to 2900) Patient presented to ED chest pain in functional class IV, responded to nitroglycerin and morphine Patient currently on DAPT (aspirin and clopidogrel). Have discontinued heparin drip Cardiology consulted: Completed 1st coronary angiography on 07/05/2024 which shows chronically occluded mid LAD, PDA 99% ostial, RCA 99% distal, circumflex 90% proximal and occluded distally, marginal 99%. Completed PCI to LAD and circumflex we will total of four stents placed. 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 Goal of LDL should be less than 45 due to MD # History of prostate cancer status post resection Monitor # Asthma no exacerbation No need for bronchodilators at the moment of evaluation Goals of care discussed with the patient and family for more than 27 minutes: Full code status Discussed plan with Dr. He, patient and nurses: Completed 2nd coronary angiography with stage PCI to RCA and PDA. We will evaluate kidney function on the a.m., if within normal limits we will discharge. Plan discussed with: Patient, Spouse, Daughter, Other (Nurses) My Orders My Orders Orders - ALAN SANTOS Procedure Category Date Status Time Chest Xray 1 View XY 07/07/24 Resulted 08:14 Cardiac DIET 07/07/24 Transmitted Diet-2gna,Lofat,Lochol Lunch Date of Service: Jul 07, 2024 Billing Provider: CHOLO HE MD Common Visit Codes: [id number] INP/OBS CARE(HIGH) ALAN SANTOS Jul 07, 2024 17:05 CHOLO HE MD Jul 13, 2024 13:57
[2024-07-07] MEDS: ACETAMINOPHEN 325 MG TAB PO PRN (20:49)
[2024-07-08 01:00] VITALS: BP 130/74; PULSE 90; RESP 16; TEMP 97.7; O2SAT 97
[2024-07-08 05:00] VITALS: BP 104/68; PULSE 97; RESP 17; TEMP 97.9; O2SAT 97
[2024-07-08 06:47] LABS: Basophils # (auto) 0 10 ^3/uL (0-0.2); Basophils % (auto) 0.4 % (0.0-2.0); Eosinophils # (auto) 0.3 10 ^3/uL (0-0.8); Eosinophils % (auto) 2.9 % (0.0-7.0); Hematocrit 40.7 % (41.0-53.0); Hemoglobin 13.7 g/dL (13.5-17.5); Lymphocytes # (auto) 1.5 10 ^3/uL (0.4-5.4); Lymphocytes % (auto) 15.5 % (10.0-50.0); Mean Corpuscular Hemoglobin 27.4 pg (28.0-32.0); Mean Corpuscular Hgb Conc. 33.6 g/dL (32.0-36.0); Mean Corpuscular Volume 81.3 fL (80.0-100.0); Monocytes # (auto) 0.8 10 ^3/uL (0-1.3); Monocytes % (auto) 8.5 % (0.0-12.0); Neutrophils # (auto) 7.2 10 ^3/uL (1.6-8.6); Neutrophils % (auto) 72.7 % (37.0-80.0); Platelet Count (auto) 211 10^3/uL (140-450); Red Cell Distribution Width 15.5 % (11.8-14.3); White Blood Cell 9.9 10^3/uL (4.4-10.8)
[2024-07-08 06:53] LABS: Alanine Aminotransferase 26 U/L (7-40); Alkaline Phosphatase 83 U/L (46-116); Anion Gap 11 (5-15); BUN/Creatinine Ratio 12.8 (10.0-20.0); Blood Urea Nitrogen 12 mg/dL (9-23); Calcium 9.3 mg/dL (8.7-10.4); Carbon Dioxide 23 mmol/L (20-31); Chloride 102 mmol/L (98-107); Magnesium 1.9 mg/dL (1.6-2.6); Potassium 3.8 mmol/L (3.5-5.1)
[2024-07-08 06:54] LABS: Albumin 4.1 g/dL (3.2-4.8); Aspartate Aminotransferase 62 U/L (13-40); Glucose 138 mg/dL (74-106); Sodium 136 mmol/L (136-145)
[2024-07-08 06:55] LABS: Bilirubin, Total 0.7 mg/dL (0.2-1.0); Total Protein 6.3 g/dL (5.7-8.2)
[2024-07-08 08:00] VITALS: PULSE 69; PULSE 92; RESP 16; O2SAT 94
[2024-07-08 08:30] VITALS: BP 113/70; PULSE 69; RESP 16; TEMP 98.4; O2SAT 94
[2024-07-08] MEDS ORDERED: ASPI1TAB19 PO (11:18)
[2024-07-08] MEDS ORDERED: CLOP75TA70 PO (11:18)
[2024-07-08] MEDS ORDERED: EMPA1TAB PO (11:18)
[2024-07-08] MEDS ORDERED: METF-370 PO (11:18)
[2024-07-08] MEDS ORDERED: ATOR40TA52 PO (11:18)
[2024-07-08 12:30] VITALS: BP 92/64; PULSE 89; RESP 14; TEMP 97.8; O2SAT 100
--- NOTE | 2024-07-08 13:22 | DVHDSRES ---
Discharge Summary Date of Admission Resident Creating Document: TOMMIE FOX RESIDENT Jul 04, 2024 at 21:12 Date of Discharge: Jul 08, 2024 Admitting Diagnosis Chest pain Labs/Diagnostic Data: Laboratory Results Test 07/08/24 05:56 07/06/24 05:36 07/06/24 05:25 07/05/24 14:21 White Blood Count 9.9 10^3/uL (4.4-10.8) Red Blood Count 5.00 10^6/uL (4.5-5.90) Hemoglobin 13.7 g/dL (13.5-17.5) Hematocrit 40.7 % (41.0-53.0) Mean Corpuscular Volume 81.3 fL (80.0-100.0) Mean Corpuscular Hemoglobin 27.4 pg (28.0-32.0) Mean Corpuscular Hemoglobin Concent 33.6 g/dL (32.0-36.0) Red Cell Distribution Width 15.5 % (11.8-14.3) Platelet Count 211 10^3/uL (140-450) Mean Platelet Volume 8.9 fL (6.9-10.8) Neutrophils (%) (Auto) 72.7 % (37.0-80.0) Lymphocytes (%) (Auto) 15.5 % (10.0-50.0) Monocytes (%) (Auto) 8.5 % (0.0-12.0) Eosinophils (%) (Auto) 2.9 % (0.0-7.0) Basophils (%) (Auto) 0.4 % (0.0-2.0) Neutrophils # (Auto) 7.2 10 ^3/uL (1.6-8.6) Lymphocytes # (Auto) 1.5 10 ^3/uL (0.4-5.4) Monocytes # (Auto) 0.8 10 ^3/uL (0-1.3) Eosinophils # (Auto) 0.3 10 ^3/uL (0-0.8) Basophils # (Auto) 0 10 ^3/uL (0-0.2) Nucleated Red Blood Cells 0.0 % Sodium Level 136 mmol/L (136-145) Potassium Level 3.8 mmol/L (3.5-5.1) Chloride Level 102 mmol/L (98-107) Carbon Dioxide Level 23 mmol/L (20-31) Anion Gap 11 (5-15) Blood Urea Nitrogen 12 mg/dL (9-23) Creatinine 0.94 mg/dL (0.700-1.30) Glomerular Filtration Rate Calc 83 mL/min (>90) BUN/Creatinine Ratio 12.8 (10.0-20.0) Serum Glucose 138 mg/dL (74-106) Calcium Level 9.3 mg/dL (8.7-10.4) Phosphorus Level 4.0 mg/dL (2.4-5.1) Magnesium Level 1.9 mg/dL (1.6-2.6) Total Bilirubin 0.7 mg/dL (0.2-1.0) Aspartate Amino Transferase (AST) 62 U/L (13-40) Alanine Aminotransferase (ALT) 26 U/L (7-40) Alkaline Phosphatase 83 U/L (46-116) Total Protein 6.3 g/dL (5.7-8.2) Albumin 4.1 g/dL (3.2-4.8) Prothrombin Time 11.2 sec (9.3-11.8) Prothrombin Time INR 1.06 (0.9-1.15) Activated Partial Thromboplast Time 28.2 SEC (24.5-34.5) Influenza Type A Antigen Negative (Negative) Influenza Type B Antigen Negative (Negative) SARS-CoV-2 Antigen (Rapid) Negative (NEGATIVE) Activated Clotting Time 187 SEC. (93-166) Test 07/05/24 07:00 07/04/24 22:01 07/04/24 21:30 Urine Color Light-yellow (Yellow) Urine Clarity Clear (Clear) Urine pH 6.0 (5.0-9.0) Urine Specific [place] 1.045 (1.001-1.035) Urine Protein Trace (Negative) Urine Ketones Negative (Negative) Urine Blood Negative /uL (Negative) Urine Nitrite Negative (Negative) Urine Bilirubin Negative (Negative) Urine Urobilinogen Normal mg/dL (Negative) Urine Leukocyte Esterase Negative /uL (Negative) Urine RBC <1 /hpf (0 - 3) Urine Microscopic WBC 1 /HPF (0-3) Urine Squamous Epithelial Cells None seen /hpf (<5) Urine Bacteria None seen /hpf (None Seen) Urine Glucose Normal mg/dL (Normal) Urine Opiates Screen Neg (NEGATIVE) Urine Fentanyl Screen Neg (NEGATIVE) Urine Barbiturates Screen Neg (NEGATIVE) Urine Phencyclidine Screen Neg (NEGATIVE) Urine Amphetamines Screen Neg (NEGATIVE) Urine Benzodiazepines Screen Neg (NEGATIVE) Urine Cocaine Screen Neg (NEGATIVE) Urine Cannabinoids Screen Neg (NEGATIVE) Lactic Acid Level 1.5 mmol/L (0.4-2.0) D-Dimer, Quantitative 0.40 mg/L FEU (0.0-0.49) Hemoglobin A1c 6.7 % A1C (<5.7) Troponin I High Sensitivity 2984 ng/L (</=54) Triglycerides Level 139 mg/dL (< 150) Cholesterol Level 191 mg/dL (< 200) LDL Cholesterol 125 mg/dL (< 100) HDL Cholesterol 46 mg/dL (40-59) Thyroid Stimulating Hormone (TSH) 1.06 uIU/mL (0.55-4.78) Plasma/Serum Blood Alcohol < 3.0 mg/dL (<10) Other Laboratory Tests 07/08/24 05:56 Brief Hx & Hospital Course: Jose Gonsalves is a 79-year-old male patient who presented to the ED with the chief complaints of right-sided oppressive chest pain in functional class IV, which radiated towards right shoulder and back, intensity 8/10 which started afternoon on the day of admission associated with vomiting, dizziness, diaphoresis which prompted him to visit ED. Patient reported he never experienced symptoms like this in past. Denies palpitation, syncope, dyspnea, diarrhea, recent travel, sick contacts and motor or sensory deficits Hospital course: ECG showed normal sinus rhythm without any ST elevation. Serial troponins 1st set was negative, however, then the increased up to 2900. Cardiology was taken on board and patient completed angiography on 07/05/2024 which showed chronically occluded mid LAD, PDA 99% ostial, RCA 99% distal, circumflex 90% proximal an occluded distally, marginal 99%. Patient completed PCI to LAD and circumflex with a total of 4 stents placed. Patient also completed stage RCA on 07/07/2024 with successful PCI to RCA and PDA. Echocardiogram was done for the patient which showed ejection fraction 40-45% with hypokinetic apex and moderate left ventricular hypertrophy, left atrial enlargement, mild along with a mild tricuspid regurgitation. Chest x-ray also showed congestion, patient was continued on aspirin and clopidogrel along with Protonix. Patient was also incidentally noted to have an Hb A1c of 6.7 and started on insulin sliding scale. Some pulmonary fibrosis was noted for which patient was instructed to follow up with pulmonology in the outpatient clinic. On the day of discharge, patient appeared well and had stable vital signs, patient denied any active ongoing chest pain or any chest pain in the last 24 hours. Patient was discharged home with aspirin, statin, clopidogrel, metformin 500 mg b.i.d. along with empagliflozin 10 mg p.o. daily. Patient was instructed to follow up with the used car renovator in the outpatient clinic along with a follow up with pulmonology in the outpatient clinic. Details of hospitalization were explained to patient and at bedside in the presence of a storm window installer were all questions were answered and concerns were addressed. His hospital course was uncomplicated. Patient lying in bed, in no acute distress General: Lucid, afebrile, mucosae are moist Cardiovascular: Normal S1 and S2. No murmurs, gallops or rubs Respiratory: Normal ventilation mechanics. Clear lung sounds on auscultation Abdomen: Soft, nontender, no organomegaly, normal bowel sounds MSK/skin: Mobilizes 4 limbs. Skin is dry and warm. Puncture site on right wrist with no hematoma and no murmur Neurological: Oriented in 3 spheres. No motor no sensitive deficits. Pupils are isocoric and reactive Consults/Reason for consult Cardiology-NSTEMI type 1 Operations or Procedures CHEST RADIOGRAPH Indication: CP Technique: Single frontal view of the chest was obtained COMPARISON: XY CHEST PORTABLE on DOS: 11/09/23 FINDINGS: Lines and Tubes: None Lungs: Diffuse increased interstitial prominence. Pleura: No effusion. No pneumothorax. Cardiomediastinal contours: Unremarkable Bones: Unremarkable IMPRESSION: Chronic fibrotic changes with possible superimposed pulmonary vascular congestion or atypical pneumonia. CLINICAL INDICATION: pain TECHNIQUE: XY R SHOULDER 1V XRAY Comparison: None FINDINGS: IMPRESSION: Single AP radiograph of the right shoulder demonstrates no abnormality. CTA Chest with intravenous contrast INDICATION: cp COMPARISON: Chest radiograph performed on 07/04/2024 TECHNIQUE: Multidetector spiral CTA of the chest was performed of the chest with cc of intravenous contrast. PULMONARY ANGIOGRAPHY PROTOCOL was utilized using a bolus-tracking technique centered on the main pulmonary artery. Coronal and sagittal multiplanar and MIP reformats were performed. Radiation Dose : 1. Chest: CTDI volume is 8.88 mGy. Dose-length product is 905.25 mGy*cm The dose indicators for CT are the volume Computed Tomography (CT) Dose Index (CTDIvol) and the Dose Length Product (DLP), and are measured in units of mGy and mGy-cm, respectively. These indicators are not patient dose, but values generated from the CT scanner acquisition factors. The report includes radiation exposure data for exposures received during this examination. FINDINGS: Pulmonary artery: No central, lobar or proximal segmental pulmonary embolus. Normal caliber main pulmonary artery. Lower neck: Normal thyroid. Lungs: Emphysema. Bilateral interlobular septal thickening which may reflect fibrosis. No focal airspace disease. Central airways: Patent. Pleura: No pneumothorax. No pleural effusions. Heart/Vascular Structures: The heart is normal in size. No pericardial effusion. Coronary artery calcifications. Thoracic aorta is normal in caliber. No aneurysm or dissection. Lymph Nodes: No mediastinal or hilar lymphadenopathy. Esophagus:Grossly unremarkable. Musculoskeletal: Unremarkable. Body wall: Unremarkable. Upper abdomen: Unremarkable. IMPRESSION: 1. No evidence of pulmonary embolism. 2. 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 No focal airspace disease. 3. Coronary artery calcifications. EXAM: Two-dimensional and M-mode echocardiogram with Doppler and color Doppler. Blood Pressure: 95/61 mmHg INDICATION Chest Pain RISK FACTORS Height: 5'2", Weight: 151 DIMENSIONS LVDd 4.3 (3.8-5.7cm) LA (2D) 3.5 (1.9-4.0cm) Aortic Root 3.3 (2.0- 3.7cm) LVDs 2.7 (2.5-4.0cm) LA (MM) (1.9-4.0cm) Aortic Cusp Exc 1.5 (1.5- 2.0cm) EF (%) 65.0 (55-70%) Rt. Atrium (1.9-4.0cm) Asc. Aorta 3.1 cm IVSd 1.4 (0.7-1.1cm) RV (D) (1.8-2.4cm) PWd 0.7 (0.7-1.1cm) Mitral Valve Mitral Mitral Stenosis E wave 0.35m/s MV Mean GR. mmHg A wave 0.68m/s MV Peak GR. mmHg E/A ratio 0.5 2D MVA cm2 DECEL Time 264ms PRESS 1/2 Time ms Aortic Valve Aortic Valve Aortic Stenosis V1 0.84m/s AO Mean GR. 3mmHg V2 1.09m/s AO Peak GR. 5mmHg LVOT Diameter 2.2 (1.8-2.4cm) Doppler ERASMO 2.93cm2 Pulmonic Valve V2 0.83m/s Tricuspid Valve TR Velocity 2.18m/s RVSP 22mmHg Other Information Quality : Technically Limited Rhythm : Technically limited study due to body habitus. Conclusion lvef 40-45 % by visual estimate apex is hypokinetic , mioderate LVH RV not well seen left atrium enlarged mild mild tricuspid regurg Operative Report - 2 Operative Report - 2 Report Details Date: 07/05/24 Preop Diagnosis: CAD. Non-STEMI. Postop Diagnosis: Triple-vessel disease. Occluded LAD. Anterior hypokinesis. Normal LV function. Surgeon: Raymon Castro MD Anesthesiologist: Conscious sedation Anesthesia: Mac, Local (Patient received conscious sedation with the Versed and fentanyl. I personally monitored the patient throughout the entirety of the procedure. No complications.) Consent: The patient was informed of the risks and benefits of the procedure. These include but are not limited to complications of anesthesia, postoperative infection, incomplete relief of symptoms, recurrence of symptoms, damage to blood vessels, nerves and tendons, deep venous thrombosis, pulmonary embolism and possible need for repeat surgery in the future. Estimated Blood Loss: 5 cc. Findings: Triple-vessel disease. Normal LV function mild anterior hypokinesis. Indications for Surgery: Non ST-elevation VT. Chest pain. Name of Procedure Performed Left heart catheterization. Bilateral cine coronary angiography. Ventriculography. PTCA and stenting of the LAD and circumflex coronary artery. Intravascular ultrasound of the left anterior descending. Procedure Details Procedure Details: Prior local anesthesia with 2% lidocaine to the right wrist and full informed consent obtained patient was prepped and draped in usual fashion followed by placement of a six Maltese sheath into the right radial artery through which a Kole catheter was used for ventriculography and cannulation of both right and left coronary ostia. A 3.5 EBU guiding catheter was then used for angioplasty of the circumflex and LAD. An IVUS catheter by [employer] was used for evaluation of the LAD. Hemodynamics: Aortic blood pressure was 130/70. End-diastolic pressure was 15. There was no gradient across the aortic valve on pullback. Coronary anatomy. The right coronary artery has moderate plaquing and calcification. The distal RCA has a 99% stenosis. PDA has a 99% ostial stenosis. The posterolateral branch distal to the origin of the PDA has a 95% stenosis. Left main is large and normal. Left anterior descending is 100% occluded with minor faint filling of the mid to distal LAD. The circumflex is a large vessel. It has proximal 90% stenosis. The large acute marginal branch has a 99% stenosis. The distal circumflex proper is occluded. Ventriculography: Ventriculography in the EWING projection shows an EF of 60% anterior hypokinesis Plasty was performed for which five guide was then placed a Guidezilla placed to enhance the access of the left anterior descending. Placed a wire across the area of stenosis placed a two five of the LAD distal to once revealed small neuro S1 ultrasound stenosis of about 2 mm which was a long tubular lesion LAD proximal diagonal three/two. After pre dilatation we stented the LAD two five 12 stent. This was dilated to 20 atmospheres least score distal to performed several inflations. Used to to five stent to mid and distal. There was excellent thrombus formation dissection placed wire into the circumflex difficult trying to access the circumflex used catheters and wires access the obtuse marginal branch. We used a ninja catheter and directed a wire which was a whisper wire into the marginal branch. There was a significant spiraling dissection. We were able to get into the true lumen pre dilate with a two five balloon. We placed a two five by 24 into the circumflex and marginal branch. Distal to the stent there was another dissection for which we placed a 2.5 mm x 22 stent distal to the initial stent. This was a [employer]onic drug-eluting stent. There was some haziness at the circumflex ostium for which we placed a 3-0 by 8 mm stent and subsequently removed the Guidezilla and angiographic evaluation revealed excellent antegrade flow through both LAD and circumflex vessels Impression: Normal left ventricular ejection fraction with anterior hypokinesis. Three-vessel coronary artery disease as delineated above. Successful angioplasty and stenting of the LAD and circumflex. Recommendations a staged procedure will be performed to the RCA in the near future. Condition Good Operative Report - 2 Report Details Date: 07/07/24 Preop Diagnosis: CAD. Non-STEMI. Postop Diagnosis: Triple-vessel disease. Successful aperture of RCA and PDA. Surgeon: Raymon Castro MD Anesthesiologist: Conscious sedation Anesthesia: Mac, Local (Patient received conscious sedation with the Versed and fentanyl. I personally monitored the patient throughout the entirety of the procedure. No complications.) Consent: The patient was informed of the risks and benefits of the procedure. These include but are not limited to complications of anesthesia, postoperative infection, incomplete relief of symptoms, recurrence of symptoms, damage to blood vessels, nerves and tendons, deep venous thrombosis, pulmonary embolism and possible need for repeat surgery in the future. Complications: No complications Estimated Blood Loss: 5 cc. Findings: Patent recently open the an angioplasty to LAD. Patent circumflex marginal and circumflex angioplastied on the . Successful aperture of distal posterolateral branch and RCA as well as PDA. Indications for Surgery: Chest pain Name of Procedure Performed Bilateral cine coronary angiography. PTCA and stenting of the RCA posterolateral branch and PDA. Procedure Details Procedure Details: Prior local anesthesia with 2% lidocaine to the right wrist and full informed consent obtained patient was prepped and draped in usual fashion followed by placement of a six Maltese sheath into the right radial artery through which a Kole catheter was used for ventriculography and cannulation of both right and left coronary ostia. A 3.5 EBU guiding catheter was then used for angioplasty of the RCA and PDA. Coronary anatomy. The right coronary artery has moderate plaquing and calcification. The distal RCA has a 99% stenosis. PDA has a 99% ostial stenosis. The posterolateral branch distal to the origin of the PDA has a 95% stenosis. Left main is large and normal. Left anterior descending is patent. The circumflex is patent that was previously angioplastied as well. The RCA as delineated above underwent angioplasty. A 3.5 EBU guide was placed into the RCA. A Specter wire was placed distal into the posterolateral branch and a shockwave balloon was used to treat the distal RCA and posterolateral branch. It was also used to treat the ostium of the PDA. After several treatments performed we placed a two five noncompliant balloon and subsequently placed a 2.5 mm by 12 mm stent into the distal RCA/posterolateral branch. This was a [employer] avelina drug-eluting stent. We then placed in a kissing balloon fashion a 3-0 by 12 and a two 5 x 12 into the distal RCA and PDA respectively. This was a DK crush technique. After removing the wire from the PDA we replaced it and went to his front with a noncompliant 2.5X 12mm balloon. We then placed a 4.5 mm balloon noncompliant euphoria balloon into the distal RCA and performed balloon kissing technique of the distal RCA/PDA with a two five noncompliant balloon as well. There was excellent antegrade flow. No thrombus formation or dissection noted. Impression: Successful PTCA and stenting with intravascular lithotripsy of the RCA and PDA. Condition Good Condition at Discharge: Good Final Diagnosis/Problems List Moderate-risk NSTEMI type I (CAPRICE: 4, PINEDA: 137, Crusade: 21 points) Ischemic cardiomyopathy, heart failure with moderately reduced ejection fraction 40-45% Ruled out pneumonia, sepsis Questionable pulmonary fibrosis GERD Newly diagnosed diabetes, Hb A1c 6.7 Dyslipidemia Asthma with no exacerbation Discharge Disposition: Home Discharge Instruct/Medications Diet: Cardiac 2g Na,low cholest Activity: No Restrictions, As Tolerated Follow Up/Referral: Please follow up with Cardiology in the outpatient clinic Please follow up with PCP in 1-2 weeks Medications: Aspirin 81 mg daily Plavix 75 mg daily for 1 year Atorvastatin 40 mg p.o. daily Metformin 500 mg twice a day Empagliflozin 10 mg p.o. daily Discharge Statement: "Patient was advised to return to the ER or call 911 if any headaches, dizziness, shortness of breath, chest pain, abdominal pain, bleeding, fevers, or worsening of medical condition. Patient was counseled about treatment plan, medications, possible side effects, patientverbalized understanding. All questions were answered to the best of my ability. This discharge took greater then 30 minutes in planning, reviewing documentation, counseling the patient, and discussing with other team members." ASSESSMENT ASSESSMENT Assessment Moderate-risk NSTEMI type I (CAPRICE: 4, PINEDA: 137, Crusade: 21 points) Ischemic cardiomyopathy, heart failure with moderately reduced ejection fraction 40-45% Ruled out pneumonia, sepsis Questionable pulmonary fibrosis GERD Newly diagnosed diabetes, Hb A1c 6.7 Dyslipidemia Asthma with no exacerbation TOMMIE FOX RESIDENT Jul 08, 2024 13:22
[2024-07-08 16:30] VITALS: BP 87/53; PULSE 62; RESP 14; TEMP 98.2; O2SAT 96
== END 2024-07-08 17:58 | disposition home or self-care (01) | DRG 324 ==
LOC: ER 12:56 → OVERFLOW 21:12 → TELE-CENTR 07-05 17:56
PROVIDERS: ADMIT Student in an Organized Health Care Education/Training Program; ATTEND Student in an Organized Health Care Education/Training Program
PROC: 027237Z Dilation of Coronary Artery, Three Arteries with Four or More Drug-eluting Intraluminal Devices, Percutaneous Approach (ICD-10-PCS; principal; 2024-07-05)
PROC: B240ZZ3 Ultrasonography of Single Coronary Artery, Intravascular (ICD-10-PCS; 2024-07-05)
PROC: 4A023N7 Measurement of Cardiac Sampling and Pressure, Left Heart, Percutaneous Approach (ICD-10-PCS; 2024-07-05)
PROC: B211YZZ Fluoroscopy of Multiple Coronary Arteries using Other Contrast (ICD-10-PCS; 2024-07-05)
PROC: B215YZZ Fluoroscopy of Left Heart using Other Contrast (ICD-10-PCS; 2024-07-05)
PROC: 02F13ZZ Fragmentation in Coronary Artery, Two Arteries, Percutaneous Approach (ICD-10-PCS; 2024-07-07)
PROC: 027135Z Dilation of Coronary Artery, Two Arteries with Two Drug-eluting Intraluminal Devices, Percutaneous Approach (ICD-10-PCS; 2024-07-07)
PROC: B215YZZ Fluoroscopy of Left Heart using Other Contrast (ICD-10-PCS; 2024-07-07)
PROC: B211YZZ Fluoroscopy of Multiple Coronary Arteries using Other Contrast (ICD-10-PCS; 2024-07-07)
DX: I21.4 Non-ST elevation (NSTEMI) myocardial infarction (principal); I50.22 Chronic systolic (congestive) heart failure; I25.10 Atherosclerotic heart disease of native coronary artery without angina pectoris; K21.9 Gastro-esophageal reflux disease without esophagitis; E11.9 Type 2 diabetes mellitus without complications; E78.5 Hyperlipidemia, unspecified; J45.909 Unspecified asthma, uncomplicated; I25.5 Ischemic cardiomyopathy; I11.0 Hypertensive heart disease with heart failure; Z79.899 Other long term (current) drug therapy; Z85.46 Personal history of malignant neoplasm of prostate; Z79.4 Long term (current) use of insulin
CPT/HCPCS: 36415; 71045; 71275; 73020; 80053; 80061; 80307; 80320; 81001; 83036; 83605; 83735; 84100; 84443; 84484; 85025; 85379; 85610; 85730; 86850; 86900; 86901; 87426; 87804; 92928; 92941; 92978; 93005; 93306; 93454; 93458; 96365; 96375; 99152; 99153; C1874; C1887; G0378; J2250; J2405; J2470; Q9967

== ENCOUNTER → 2024-08-21 | Outpatient (CLI) | payer OTHER, MEDICAID ==
[~2024-08-21] MED LIST changes: +ASPI1TAB19 PO; +ATOR40TA52 PO; +CLOP75TA70 PO; +EMPA1TAB PO; -HYDR-4902 PO; +METF-370 PO; +OMEP20TA PO
[2024-08-21 09:47] LABS: Alanine Aminotransferase 21 U/L (7-40); Alkaline Phosphatase 94 U/L (46-116); Anion Gap 9 (5-15); BUN/Creatinine Ratio 12.5 (10.0-20.0); Blood Urea Nitrogen 11 mg/dL (9-23); Calcium 9.8 mg/dL (8.7-10.4); Carbon Dioxide 24 mmol/L (20-31); Chloride 106 mmol/L (98-107); Potassium 4.2 mmol/L (3.5-5.1); Sodium 139 mmol/L (136-145)
[2024-08-21 09:48] LABS: Total Protein 7.2 g/dL (5.7-8.2)
[2024-08-21 09:49] LABS: Albumin 4.6 g/dL (3.2-4.8); Aspartate Aminotransferase 21 U/L (13-40); Bilirubin, Total 0.8 mg/dL (0.2-1.0)
[2024-08-21 09:57] LABS: Glucose 117 mg/dL (74-106)
== END | disposition home or self-care (01) ==
LOC: LAB 08:50
PROVIDERS: ATTEND Internal Medicine
DX: I10 Essential (primary) hypertension (principal)
CPT/HCPCS: 36415; 80053

== ENCOUNTER → 2024-08-25 | Outpatient (CLI) | payer OTHER, MEDICAID ==
[2024-08-25 08:40] LABS: Urine Bacteria None Seen /hpf (None Seen)
[2024-08-25 08:43] LABS: Basophils # (auto) 0.1 10 ^3/uL (0-0.2); Basophils % (auto) 0.8 % (0.0-2.0); Eosinophils # (auto) 0.3 10 ^3/uL (0-0.8); Eosinophils % (auto) 3.4 % (0.0-7.0); Hematocrit 39.3 % (41.0-53.0); Hemoglobin 13.2 g/dL (13.5-17.5); Lymphocytes # (auto) 1.9 10 ^3/uL (0.4-5.4); Lymphocytes % (auto) 18.8 % (10.0-50.0); Mean Corpuscular Hemoglobin 27.6 pg (28.0-32.0); Mean Corpuscular Hgb Conc. 33.6 g/dL (32.0-36.0); Mean Corpuscular Volume 82.1 fL (80.0-100.0); Monocytes # (auto) 0.8 10 ^3/uL (0-1.3); Monocytes % (auto) 8.3 % (0.0-12.0); Neutrophils # (auto) 6.9 10 ^3/uL (1.6-8.6); Neutrophils % (auto) 68.7 % (37.0-80.0); Nucleated Red Blood Cells % 0.1 %; Platelet Count (auto) 228 10^3/uL (140-450); Red Blood Cells 4.78 10^6/uL (4.5-5.90); Red Cell Distribution Width 16.9 % (11.8-14.3)
[2024-08-25 09:00] LABS: Urine Blood Negative /uL (Negative); Urine Clarity Clear (Clear); Urine Color Yellow (Yellow); Urine Protein, UAD TRACE (Negative); Urine Specific Gravity 1.036 (1.001-1.035); Urine Squamous Epithelial Cell FEW /hpf (<5); Urine Urobilinogen Normal (Negative); Urine WBC 1 /HPF (0-3); Urine pH 5.5 (5.0-9.0)
[2024-08-25 09:06] LABS: Alanine Aminotransferase 17 U/L (7-40); Albumin 4.8 g/dL (3.2-4.8); Alkaline Phosphatase 95 U/L (46-116); Anion Gap 9 (5-15); Aspartate Aminotransferase 15 U/L (13-40); BUN/Creatinine Ratio 10.9 (10.0-20.0); Blood Urea Nitrogen 10 mg/dL (9-23); Carbon Dioxide 25 mmol/L (20-31); Chloride 106 mmol/L (98-107); Cholesterol 103 mg/dL (< 200); LDL Cholesterol 47 mg/dL (< 100); Potassium 4.1 mmol/L (3.5-5.1); Sodium 140 mmol/L (136-145); Total Protein 7.5 g/dL (5.7-8.2); Triglycerides 77 mg/dL (< 150)
[2024-08-25 09:10] LABS: Glucose 126 mg/dL (74-106); HDL Cholesterol 37 mg/dL (40-59)
[2024-08-25 09:18] LABS: Creatinine, Urine 105.85 mg/dL (30.0-125.0)
== END | disposition home or self-care (01) ==
LOC: LAB 08:24
PROVIDERS: ATTEND Student in an Organized Health Care Education/Training Program
DX: I10 Essential (primary) hypertension (principal); E11.9 Type 2 diabetes mellitus without complications; M25.50 Pain in unspecified joint
CPT/HCPCS: 36415; 80053; 80061; 81001; 82043; 82570; 83036; 84443; 85025; 86038

== ENCOUNTER → 2024-09-25 | Outpatient (CLI) | payer OTHER, MEDICAID ==
[2024-09-25 09:02] LABS: Urine Bacteria None Seen /hpf (None Seen)
[2024-09-25 09:22] LABS: Urine Blood Negative /uL (Negative); Urine Clarity Clear (Clear); Urine Color Light-Yellow (Yellow); Urine Mucus FEW (None Seen); Urine Protein, UAD TRACE (Negative); Urine Specific Gravity 1.022 (1.001-1.035); Urine Squamous Epithelial Cell FEW /hpf (<5); Urine Urobilinogen Normal (Negative); Urine WBC 1 /HPF (0-3)
[2024-09-25 09:26] LABS: Basophils # (auto) 0 10 ^3/uL (0-0.2); Basophils % (auto) 0.5 % (0.0-2.0); Eosinophils # (auto) 0.6 10 ^3/uL (0-0.8)
[2024-09-25 09:30] LABS: Eosinophils % (auto) 6.6 % (0.0-7.0); Hematocrit 42.6 % (41.0-53.0); Hemoglobin 13.9 g/dL (13.5-17.5); Lymphocytes # (auto) 2.2 10 ^3/uL (0.4-5.4); Lymphocytes % (auto) 24.9 % (10.0-50.0); Mean Corpuscular Hemoglobin 26.6 pg (28.0-32.0); Mean Corpuscular Hgb Conc. 32.8 g/dL (32.0-36.0); Monocytes # (auto) 0.6 10 ^3/uL (0-1.3); Monocytes % (auto) 7.2 % (0.0-12.0); Neutrophils # (auto) 5.3 10 ^3/uL (1.6-8.6); Neutrophils % (auto) 60.8 % (37.0-80.0); Nucleated Red Blood Cells % 0.2 %; Platelet Count (auto) 238 10^3/uL (140-450); Red Blood Cells 5.25 10^6/uL (4.5-5.90); Red Cell Distribution Width 16.9 % (11.8-14.3); White Blood Cell 8.7 10^3/uL (4.4-10.8)
[2024-09-25 09:34] LABS: Creatinine, Urine 88.81 mg/dL (30.0-125.0)
[2024-09-25 09:38] LABS: Alanine Aminotransferase 23 U/L (7-40); Albumin 4.8 g/dL (3.2-4.8); Alkaline Phosphatase 88 U/L (46-116); Anion Gap 12 (5-15); Aspartate Aminotransferase 18 U/L (13-40); BUN/Creatinine Ratio 11.8 (10.0-20.0); Bilirubin, Total 0.6 mg/dL (0.2-1.0); Calcium 10.2 mg/dL (8.7-10.4); Carbon Dioxide 22 mmol/L (20-31); Chloride 106 mmol/L (98-107); Cholesterol 116 mg/dL (< 200); HDL Cholesterol 45 mg/dL (40-59); LDL Cholesterol 54 mg/dL (< 100); Potassium 4.1 mmol/L (3.5-5.1); Sodium 140 mmol/L (136-145); Total Protein 7.5 g/dL (5.7-8.2); Triglycerides 94 mg/dL (< 150)
[2024-09-25 09:40] LABS: Blood Urea Nitrogen 9 mg/dL (9-23); Glucose 125 mg/dL (74-106)
== END | disposition home or self-care (01) ==
LOC: LAB 08:43
PROVIDERS: ATTEND Student in an Organized Health Care Education/Training Program
DX: I10 Essential (primary) hypertension (principal); E11.9 Type 2 diabetes mellitus without complications; R35.1 Nocturia; Z79.899 Other long term (current) drug therapy
CPT/HCPCS: 36415; 80053; 80061; 81001; 82043; 82306; 82570; 83036; 84153; 84443; 85025

== ENCOUNTER 2024-11-06 08:51 | Outpatient (CLI) | payer OTHER, MEDICAID ==
[2024-11-06] MEDS ORDERED: ALBUTEROL SULF 2.5 MG/0.5ML(0.5%) NEB SOLN ONE (08:58)
== END 2024-11-06 17:00 | disposition home or self-care (01) ==
LOC: RT 08:51
PROVIDERS: ATTEND Internal Medicine Pulmonary Disease
DX: J44.89 Other specified chronic obstructive pulmonary disease (principal); R06.02 Shortness of breath; Z79.51 Long term (current) use of inhaled steroids
CPT/HCPCS: 94060; 94618; 94727; 94729

== ENCOUNTER 2024-12-10 14:34 | Inpatient (IN) | payer OTHER, MEDICAID ==
[~2024-12-10] VITALS: Ht 162.6 cm; Wt 73.3 kg
--- NOTE | 2024-12-10 14:56 | ED.PDOC ---
History of Present Illness HPI Comments 79-year-old male came in because of chest pain. Chest pain started when she was sitting in his chair yesterday watching TV. No radiation of chest pain. He does have a history of five stents placed five months ago. History of hypertension diabetes coronary artery disease. Denies nausea vomiting diarrhea. Denies any other symptoms. Chief Complaint: Chest Pain Time Seen by MD: 14:41 Primary Care Provider: BANDAR Lui Notes: Nurses Notes, Medications, Allergies Allergies: Coded Allergies: NO KNOWN ALLERGIES (Unverified , 11/09/23) Home Meds Active Scripts Empagliflozin (Jardiance) 10 Mg Tab, 10 MG PO DAILY for 30 Days, #30 TAB 4 Refills Prov:TOMMIE [facility] 07/08/24 Metformin Hydrochloride (Metformin Hcl) 500 Mg Tab, 1 TAB PO BID for 30 Days, #60 TAB 3 [facility] Atorvastatin Calcium (ATORVASTATIN CALCIUM) 40 Mg Tab, 1 TAB PO DAILY for 30 Days, #30 TAB 5 Refills Prov:TOMMIE [facility] 07/08/24 Clopidogrel Bisulfate (CLOPIDOGREL) 75 Mg Tab, 1 TAB PO DAILY for 30 Days, #30 TAB 4 [facility]24 Aspirin (Aspirin) 81 Mg Tab, 81 MG PO DAILY for 30 Days, #30 TAB 4 Refills Prov:TOMMIE [facility] 07/08/24 Reported Medications Omeprazole (Gnp Omeprazole) 20 Mg Tab, 40 MG PO DAILY, TAB 07/05/24 Patients Own Medication (PATIENTS OWN MEDICATION) ., 100 MCG INH PTS OWN MED-OBTAIN FROM PT AND SEND TO RX DRUG: FREQ: RX# EXP: DATE DISP: TECH: RPH: 11/09/23 Metoprolol Tartrate (LOPRESSOR TABLET) 50 Mg Tb, 1 TAB PO DAILY 11/09/23 Lisinopril (Lisinopril) 20 Mg Tab, 1 TAB PO DAILY 11/09/23 Information Source: Patient Mode of Arrival: Ambulatory Severity: Moderate Timing: Days Duration: Since onset Past Medical History PAST MEDICAL HISTORY: Asthma, Cancer, DM, HTN Surgical History: Denies all surgeries Family History Family History: Reviewed,noncontributory to illness, Family hx of Cancer, Family hx of heart abdi Social History Smoker: Non-Smoker Alcohol: Denies ETOH Use Drugs: Denies Drug Use Lives In: Home Constitutional: denies: chills, diaphoresis, fatigue, fever, malaise, sweats, weakness, others EENTM: denies: blurred vision, double vision, ear bleeding, ear discharge, ear drainage, ear pain, ear ringing, eye pain, eye redness, hearing loss, mouth pain, mouth swelling, nasal discharge, nose bleeding, nose congestion, nose pain, photophobia, tearing, throat pain, throat swelling, voice changes, others Respiratory: denies: cough, hemoptysis, orthopnea, SOB at rest, shortness of breath, SOB with excertion, stridor, wheezing, others Cardiovascular: reports: chest pain; denies: dizzy spells, diaphoresis, Dyspnea on exertion, edema, irregular heart beat, left arm pain, lightheadedness, palpitations, PND, syncope, others Gastrointestinal: denies: abdomen distended, abdominal pain, blood streaked bowels, constipated, diarrhea, dysphagia, difficulty swallowing, hematemesis, melena, nausea, poor appetite, poor fluid intake, rectal bleeding, rectal pain, vomiting, others Genitourinary: denies: burning, dysuria, flank pain, frequency, hematuria, incontinence, penile discharge, penile sore, pain, testicle pain, testicle swelling, urgency, others Neurological: denies: dizziness, fainting, headache, left sided numbness, left sided weakness, numbness, paresthesia, pre-existing deficit, right sided numbness, right sided weakness, seizure, speech problems, tingling, tremors, weakness, others Musculoskeletal: denies: back pain, gout, joint pain, joint swelling, muscle pain, muscle stiffness, neck pain, others Integumetry: denies: bruises, change in color, change in hair/nails, dryness, laceration, lesions, lumps, rash, wounds, others Allergic/Immunocompromised: denies: Difficulty Healing, Frequent Infections, Hives, Itching, others Hematologic/Lymphatic: denies: anemia, blood clots, easy bleeding, easy bruising, swollen glands, others Endocrine: denies: excessive hunger, excessive sweating, excessive thirst, excessive urination, flushing, intolerance to cold, intolerance to heat, unexplained weight gain, unexplained weight loss, others Psychiatric: denies: anxiety, bipolar disorder, depression, hopeless, panic disorder, schizophrenia, sleepless, suicidal, others Physical Exam General Appearance: Moderate Distress HEENT: Normal ENT Inspection, Pharynx Normal, TMs Normal Neck: Full Range of Motion, Non-Tender, Normal, Normal Inspection Respiratory: Chest Non-Tender, Lungs Clear, No Accessory Muscle Use, No Respiratory Distress, Normal Breath Sounds Cardiovascular: No Edema, No JVD, No Murmur, No Gallop, Normal Peripheral Pulses, Regular Rate/Rhythm Breast Exam: Deferred Gastrointestinal: No Organomegaly, Non Tender, No Pulsatile Mass, Normal Bowel Sounds, Soft Genitalia: Deferred Pelvic: Deferred Rectal: Deferred Extremities: No calf tenderness, Normal capillary refill, Normal inspection, Normal range of motion, Non-tender, No pedal edema Musculoskeletal : Apperance: Normal Neurologic: Alert, hoist mechanic II-XII nml as Tested, No Motor Deficits, Normal Affect, Normal Mood, No Sensory Deficits Cerebellar Function: NOT DONE Reflexes: NOT DONE Skin: Dry, Normal Color, Warm Peripheral Pulses: 3+ Radial (R), 3+ Radial (L) Lymphatic: No Adenopathy Was a procedure done? Was a procedure done?: No EKG EKG : Cardiac Rhythm: NSR Differential Dx Considerations may include: Chest pain Electrolyte imbalance X-Ray, Labs, Meds, VS Vital Signs Date Time Temp Pulse Resp B/P (MAP) Pulse Ox O2 Delivery O2 Flow Rate FiO2 12/10/24 14:43 97.5 94 15 112/58 (76) 96 97.5 12/10/24 14:40 88 Lab Test 12/10/24 14:45 Range/Units White Blood Count 8.9 4.4-10.8 10^3/uL Red Blood Count 5.28 4.5-5.90 10^6/uL Hemoglobin 14.0 13.5-17.5 g/dL Hematocrit 41.8 41.0-53.0 % Mean Corpuscular Volume 79.2 L 80.0-100.0 fL Mean Corpuscular Hemoglobin 26.4 L 28.0-32.0 pg Mean Corpuscular Hemoglobin Concent 33.4 32.0-36.0 g/dL Red Cell Distribution Width 18.3 H 11.8-14.3 % Platelet Count 243 140-450 10^3/uL Mean Platelet Volume 8.3 6.9-10.8 fL Neutrophils (%) (Auto) 57.2 37.0-80.0 % Lymphocytes (%) (Auto) 27.0 10.0-50.0 % Monocytes (%) (Auto) 10.5 0.0-12.0 % Eosinophils (%) (Auto) 4.7 0.0-7.0 % Basophils (%) (Auto) 0.6 0.0-2.0 % Neutrophils # (Auto) 5.1 1.6-8.6 10 ^3/uL Lymphocytes # (Auto) 2.4 0.4-5.4 10 ^3/uL Monocytes # (Auto) 0.9 0-1.3 10 ^3/uL Eosinophils # (Auto) 0.4 0-0.8 10 ^3/uL Basophils # (Auto) 0.1 0-0.2 10 ^3/uL Nucleated Red Blood Cells 0.0 % Sodium Level Pending Potassium Level Pending Chloride Level Pending Carbon Dioxide Level Pending Anion Gap Pending Blood Urea Nitrogen Pending Creatinine Pending Glomerular Filtration Rate Calc Pending BUN/Creatinine Ratio Pending Serum Glucose Pending Calcium Level Pending Troponin I High Sensitivity Pending Time of 1ST Reevaluation: 14:55 Reevaluation 1ST: Unchanged Patient Education/Counseling: Diagnosis, Treatment, Prognosis Family Education/Counseling: Need For Follow Up SEPSIS Sepsis Screen Date sepsis recognized/suspect: Dec 10, 2024 Time Sepsis recognized/suspect: 3 Recent Procedure: No On Antibiotic Therapy: No Respiratory Rate >20: No Heart Rate >90: No Temp<36 C (96.8 F) or >38.3 C: No SBP <90 or MAP <65 mmHG: No New Acute Mental Status Change: No Is the patient on CPAP, BIPAP,: No Physician Orders Troponin-I Hs (12/10/24 14:36) Electrocardigram (12/10/24 14:36) Troponin-I Hs (12/10/24 15:36) Troponin-I Hs (12/10/24 17:36) Electrocardigram (12/10/24 15:36) Electrocardigram (12/10/24 17:36) Basic Metabolic Panel (12/10/24 14:49) Aspirin Tablet (12/10/24 15:00) Nitroglycerin Sublingual (Ntrostat Subli (12/10/24 15:00) Vital Signs Date Time Temp Pulse Resp B/P (MAP) Pulse Ox O2 Delivery O2 Flow Rate FiO2 12/10/24 14:43 97.5 94 15 112/58 (76) 96 97.5 12/10/24 14:40 88 Laboratory Tests Test 12/10/24 14:45 White Blood Count 8.9 10^3/uL (4.4-10.8) Departure 1 Departure Time of Disposition: 15:00 Impression: Primary Impression: Chest pain of unknown etiology Additional Impression: HTN (hypertension) Qualified Codes: I10 - Essential (primary) hypertension Disposition: ADMITTED INPATIENT Admit to: Med Surg Condition: Guarded Critical Care Note Critical Care Time?: No Stability Stability form required: No Heart Score Heart Score: Heart Score Response (Comments) Value History Slightly Suspicious 0 EKG Normal 0 Age >65 2 Risk Factors >3 or Hx ASHD 2 Troponin Normal limit 0 Total 4 YEMI MAYER MD Dec 10, 2024 14:56
[2024-12-10 14:57] LABS: Hematocrit 41.8 % (41.0-53.0); Hemoglobin 14.0 g/dL (13.5-17.5); Mean Corpuscular Hemoglobin 26.4 pg (28.0-32.0); Mean Corpuscular Volume 79.2 fL (80.0-100.0); Nucleated Red Blood Cells % 0.0 %
[2024-12-10 15:07] LABS: Chloride 104 mmol/L (98-107); Potassium 4.3 mmol/L (3.5-5.1); Sodium 141 mmol/L (136-145)
[2024-12-10 15:08] LABS: Anion Gap 10 (5-15); Calcium 9.7 mg/dL (8.7-10.4); Carbon Dioxide 27 mmol/L (20-31)
[2024-12-10 15:13] LABS: BUN/Creatinine Ratio 11.5 (10.0-20.0); Blood Urea Nitrogen 10 mg/dL (9-23)
[2024-12-10 15:26] LABS: Glucose 118 mg/dL (74-106)
[2024-12-10] MEDS: NITROGLYCERIN 0.4 MG SL TAB SL ONE (15:28)
--- NOTE | 2024-12-10 15:35 | DVHHP2 ---
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 Still has some shortness of the breath with the pain no cough no fever no leg swelling or calf pain. Patient states the chest pain started while he was watching TV. He does state he had five stents placed in June of [address] Castro. When evaluating patient's labs and imaging CBC was unremarkable CMP unremarkable troponin was negative. No chest x-ray was completed. With these findings we will admit for cardiac workup Past Medical History See HPI above Past Surgical History See HPI above Family History Reviewed, non-contributory to the management of this case. Past Social History The patient lives at home, denies smoking, alcohol or illicit drugs abuse. or pt is current smoker or drug use with meth Review of Systems Constitutional: No: Fever, Chills, Sweats, Weakness, Malaise, Other Eyes: No: Pain, Vision change, Conjunctivae inflammation, Eyelid inflammation, Other, Redness ENT: No: Ear pain, Ear discharge, Nose pain, Nose discharge, Nose congestion, Mouth pain, Mouth swelling, Throat pain, Throat swelling, Other Respiratory: Shortness of breath; No: Cough, Dry, SOB with excertion, Wheezing, Hemoptysis, Pleuritic Pain, Sputum, Wheezing, Other Cardiovascular: Chest Pain; No: Palpitations, Orthopnea, Paroxysmal Noc. Dyspnea, Edema, Lt Headedness, Other Gastrointestinal: No: Nausea, Vomiting, Abdominal Pain, Diarrhea, Constipation, Melena, Hematochezia, Other Genitourinary: No Dysuria, No Frequency, No Incontinence, No Hematuria, No Retention, No Other Musculoskeletal: No: other, neck pain, shoulder pain, arm pain, back pain, hand pain, leg pain, foot pain Skin: No: Rash, Lesions, Jaundice, Bruising, Other Neurological: No: Weakness, Numbness, Incoordination, Change in speech, Confusion, Seizures, Other Allergies: Coded Allergies: NO KNOWN ALLERGIES (Unverified , 11/09/23) Exam Vital Signs Vital Signs Date Time Temp Pulse Resp B/P (MAP) Pulse Ox O2 Delivery O2 Flow Rate FiO2 12/10/24 15:28 123/71 12/10/24 14:43 97.5 94 15 96 97.5 General Appearance: Alert, Oriented X3, Cooperative, No acute distress HEENT: Atraumatic, PERRLA, EOMI, Mucous membr. moist/pink Respiratory: Clear to auscultation, Normal air movement Cardiovascular: Regular rate, Normal S1, Normal S2, No murmurs Abdominal: Normal bowel sounds, Soft, No tenderness, No hepatospenomegaly, No masses Extremities: No clubbing, No cyanosis, No edema, Normal pulses, No tenderness/swelling Skin: No rashes, No breakdown, No significant lesion Neuro: Normal gait, Normal speech, Strength at 5/5 X4 ext, Normal tone, Sensation intact, Cranial nerves 3-12 NL Psych/Mental Status: Mental status NL, Mood NL Labs/Xrays I reviewed labs, imaging CT scan abdomen pelvis, EKG and all diagnostic studies on this patient from ED records and the medical chart Labs Test 12/10/24 14:45 Range/Units White Blood Count 8.9 4.4-10.8 10^3/uL Red Blood Count 5.28 4.5-5.90 10^6/uL Hemoglobin 14.0 13.5-17.5 g/dL Hematocrit 41.8 41.0-53.0 % Mean Corpuscular Volume 79.2 L 80.0-100.0 fL Mean Corpuscular Hemoglobin 26.4 L 28.0-32.0 pg Mean Corpuscular Hemoglobin Concent 33.4 32.0-36.0 g/dL Red Cell Distribution Width 18.3 H 11.8-14.3 % Platelet Count 243 140-450 10^3/uL Mean Platelet Volume 8.3 6.9-10.8 fL Neutrophils (%) (Auto) 57.2 37.0-80.0 % Lymphocytes (%) (Auto) 27.0 10.0-50.0 % Monocytes (%) (Auto) 10.5 0.0-12.0 % Eosinophils (%) (Auto) 4.7 0.0-7.0 % Basophils (%) (Auto) 0.6 0.0-2.0 % Neutrophils # (Auto) 5.1 1.6-8.6 10 ^3/uL Lymphocytes # (Auto) 2.4 0.4-5.4 10 ^3/uL Monocytes # (Auto) 0.9 0-1.3 10 ^3/uL Eosinophils # (Auto) 0.4 0-0.8 10 ^3/uL Basophils # (Auto) 0.1 0-0.2 10 ^3/uL Nucleated Red Blood Cells 0.0 % Sodium Level 141 136-145 mmol/L Potassium Level 4.3 3.5-5.1 mmol/L Chloride Level 104 98-107 mmol/L Carbon Dioxide Level 27 20-31 mmol/L Anion Gap 10 5-15 Blood Urea Nitrogen 10 9-23 mg/dL Creatinine 0.87 0.700-1.30 mg/dL Glomerular Filtration Rate Calc 89 >90 mL/min BUN/Creatinine Ratio 11.5 10.0-20.0 Serum Glucose 118 H 74-106 mg/dL Calcium Level 9.7 8.7-10.4 mg/dL Troponin I High Sensitivity 36 </=54 ng/L SEPSIS Sepsis Screen Date sepsis recognized/suspect: Dec 10, 2024 Time Sepsis recognized/suspect: 1432 Recent Procedure: No On Antibiotic Therapy: No Respiratory Rate >20: No Heart Rate >90: No Temp<36 C (96.8 F) or >38.3 C: No SBP <90 or MAP <65 mmHG: No New Acute Mental Status Change: No Is the patient on CPAP, BIPAP,: No Physician Orders Electrocardigram (12/10/24 14:36) Troponin-I Hs (12/10/24 15:36) Troponin-I Hs (12/10/24 17:36) Electrocardigram (12/10/24 15:36) Electrocardigram (12/10/24 17:36) Vital Signs Date Time Temp Pulse Resp B/P (MAP) Pulse Ox O2 Delivery O2 Flow Rate FiO2 12/10/24 15:28 123/71 12/10/24 14:43 97.5 94 15 112/58 (76) 96 97.5 12/10/24 14:40 88 Laboratory Tests Test 12/10/24 14:45 White Blood Count 8.9 10^3/uL (4.4-10.8) Medications Medications Dose Ordered Sig/Therese Route Start Time Stop Time Status Last Admin Dose Admin Aspirin 325 mg ONCE ONCE PO 12/10/24 15:00 12/10/24 15:01 DC 12/10/24 15:27 325 MG Nitroglycerin 0.4 mg ONCE ONCE SL 12/10/24 15:00 12/10/24 15:01 DC 12/10/24 15:28 0.4 MG Assessment/Plan Assessment/Plan Acute chest pain likely d/t ACS with hx stents x5 in 06/2024 and cad trop x3 negative ekg no stemi ordered Cards consult pending eval and recs ordered asa atorvastatin ordered Echocardiogram follow-up results ordered morphine as needed for pain, ordered nitro prn ordered cxr fu results chronic problems htn cad asthma cancer cardiac cath with stents x 5 (approx 5 mo ago) FEN/PPx No GI prophylaxis since no history of GI bleed or GERD's No DVT prophylaxis patient is ambulatory SCDs Diet Plan admit to telemetry cards consult follow-up recs Plan discussed with: Patient Date of Service: Dec 10, 2024 Billing Provider: ROBINA MCKENNA DNP Common Visit Codes: [id number] INP/OBS CARE (HIGH) ROBINA MCKENNA DNP Dec 10, 2024 15:35
[2024-12-10] MEDS ORDERED: MORPHINE SULFATE 4 MG/ML SYR/VIAL IV PRN (17:00)
[2024-12-10] MEDS ORDERED: NITROGLYCERIN 0.4 MG SL TAB SL PRN ×2 (17:00)
--- NOTE | 2024-12-10 17:58 | DVH ---
CHEST RADIOGRAPH Indication: acute chest pain Technique: Single frontal view of the chest was obtained Comparison: XY CHEST XRAY 1 VIEW on DOS: 07/07/24, XY CHEST PORTABLE on DOS: 07/04/24, XY CHEST PORTABL E on DOS: 11/09/23 FINDINGS: Lines and Tubes: None Lungs: No focal consolidation. Pleura: No effusion. No pneumothorax. Cardiomediastinal contours: Unremarkable Bones: No acute osseous abnormality. IMPRESSION: 1. No acute cardiopulmonary disease. 2. No significant change from 07/07/2024.
[2024-12-10 19:05] VITALS: PULSE 79; RESP 20; O2SAT 99
[2024-12-10 20:50] VITALS: PULSE 79; RESP 17; O2SAT 94
[2024-12-10 22:00] VITALS: BP 137/90; PULSE 79; RESP 17; TEMP 97.7; O2SAT 94
[2024-12-10] MEDS: ATORVASTATIN 20 MG TAB PO SCH (22:32)
[2024-12-11] VITALS (8 sets, daily range): BP systolic 116–133; BP diastolic 73–79; PULSE 60–94; RESP 15–18; TEMP 97.6–98; O2SAT 95–98
[2024-12-11 05:39] LABS: Hematocrit 38.7 % (41.0-53.0); Hemoglobin 13.0 g/dL (13.5-17.5); Mean Corpuscular Hemoglobin 26.4 pg (28.0-32.0); Mean Corpuscular Volume 78.5 fL (80.0-100.0); Nucleated Red Blood Cells % 0.0 %
[2024-12-11 05:59] LABS: Alanine Aminotransferase 16 U/L (7-40); Albumin 4.3 g/dL (3.2-4.8); Alkaline Phosphatase 78 U/L (46-116); Anion Gap 11 (5-15); BUN/Creatinine Ratio 12.3 (10.0-20.0); Bilirubin, Total 0.8 mg/dL (0.2-1.0); Blood Urea Nitrogen 10 mg/dL (9-23); Calcium 9.8 mg/dL (8.7-10.4); Carbon Dioxide 23 mmol/L (20-31); Chloride 106 mmol/L (98-107); Glucose 104 mg/dL (74-106); Potassium 3.9 mmol/L (3.5-5.1); Sodium 140 mmol/L (136-145); Total Protein 6.6 g/dL (5.7-8.2)
[2024-12-11] MEDS: EMPAGLIFLOZIN 10 MG TAB PO SCH (09:26)
[2024-12-11] MEDS: METOPROLOL TARTRATE 50 MG TAB PO SCH (09:27)
[2024-12-11] MEDS: LISINOPRIL 20 MG TAB PO SCH (09:27)
[2024-12-11] MEDS: PANTOPRAZOLE 40 MG TAB PO SCH (09:28)
[2024-12-11] MEDS: CLOPIDOGREL BISULFATE 75 MG TAB PO SCH (09:28)
[2024-12-11] MEDS: DOCUSATE SOD 100 MG CAP PO SCH (09:28)
[2024-12-11 09:47] LABS: Triglycerides 79.0 mg/dL (< 150)
[2024-12-11 09:48] LABS: Magnesium 2.0 mg/dL (1.6-2.6)
[2024-12-11 09:49] LABS: Cholesterol 86.0 mg/dL (< 200)
[2024-12-11] MEDS ORDERED: PATIENTS OWN MEDICATION (Omeprazole (Gnp Omeprazole) 40 MG) PO SCH (10:00)
[2024-12-11] MEDS ORDERED: ASPirin-EC 81 mg tab PO SCH (10:00)
[2024-12-11] MEDS ORDERED: PATIENTS OWN MEDICATION (Atorvastatin Calcium 1 TAB) PO SCH (10:00)
[2024-12-11 10:04] LABS: HDL Cholesterol 37.0 mg/dL (40-59)
--- NOTE | 2024-12-11 10:20 | DVHINCON2 ---
Date Seen: Dec 11, 2024 Referring Physician MARY Ordoñez Reason for Consultation Acute chest pain, rule out ACS History of Present Illness This is a pleasant Bengali-speaking 79-year-old male patient who presents to emergency room with chief complaint of chest pain. The patient reports that the chest pain began approximately two days ago. He describes it as unprovoked, constant, pressure-like in nature, bilaterally with radiation to his mid upper back. He denies any associated symptoms. Initial twelve lead electrocardiogram reveals normal sinus rhythm with nonspecific ST segment changes to lateral leads. Initial troponin level of 36ng/L with flat trend thereafter. Significant past medical history includes coronary artery disease status post PTCA with successful PCI to LAD and circumflex as well as a successful staged PCI to RCA and PDA, ischemic cardiomyopathy, hypertension, dyslipidemia, type 2 diabetes mellitus, GERD, history prostate cancer status post resection, and obesity. 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 Past Medical History Past medical history reviewed. No other significant than mentioned above. Past Surgical History Prostate surgery Hernia repair ORIF right distal radius fracture Family History: Cardiovascular disease G8 MOTHER Hypertension Family History Family history reviewed. Social History Denies the use of tobacco, alcohol or illicit drugs. Allergies: Coded Allergies: NO KNOWN ALLERGIES (Unverified , 11/09/23) Home Meds Active Scripts Empagliflozin (Jardiance) 10 Mg Tab, 10 MG PO DAILY for 30 Days, #30 TAB 4 Refills Prov:TOMMIE FOX RESIDENT 07/08/24 Metformin Hydrochloride (Metformin Hcl) 500 Mg Tab, 1 TAB PO BID for 30 Days, #60 TAB 3 Refills Prov:FOXTOMMIE RESIDENT 07/08/24 Atorvastatin Calcium (ATORVASTATIN CALCIUM) 40 Mg Tab, 1 TAB PO DAILY for 30 Days, #30 TAB 5 Refills Prov:TOMMIE FOX [facility] 07/08/24 Clopidogrel Bisulfate (CLOPIDOGREL) 75 Mg Tab, 1 TAB PO DAILY for 30 Days, #30 TAB 4 Refills Prov:TOMMIE FOX RESIDENT 07/08/24 Aspirin (Aspirin) 81 Mg Tab, 81 MG PO DAILY for 30 Days, #30 TAB 4 Refills Prov:TOMMIE FOX RESIDENT 07/08/24 Reported Medications Omeprazole (Gnp Omeprazole) 20 Mg Tab, 40 MG PO DAILY, TAB 07/05/24 Patients Own Medication (PATIENTS OWN MEDICATION) ., 100 MCG INH PTS OWN MED-OBTAIN FROM PT AND SEND TO RX DRUG: FREQ: RX# EXP: DATE DISP: TECH: [facility] [place]: 11/09/23 Metoprolol Tartrate (LOPRESSOR TABLET) 50 Mg Tb, 1 TAB PO DAILY 11/09/23 Lisinopril (Lisinopril) 20 Mg Tab, 1 TAB PO DAILY 11/09/23 Home Meds Home medications reviewed. Current Medications Current Medications Medications (Trade) Dose Ordered Sig/Therese Route PRN Reason Start Time Stop Time Status Last Admin Aspirin (Ecotrin Enteric Coated Tablet) 81 mg DAILY PO 12/11/24 10:00 UNV Clopidogrel Bisulfate (Plavix) 75 mg DAILY PO 12/11/24 10:00 12/11/24 09:28 Empaglifozin (Jardiance) 10 mg DAILY PO 12/11/24 10:00 12/11/24 09:26 Lisinopril (Zestril Tablet) 20 mg DAILY PO 12/11/24 10:00 12/11/24 09:27 Metoprolol Tartrate (Lopressor Tablet) 50 mg DAILY PO 12/11/24 10:00 12/11/24 09:27 Patient Own Medication 1 tab DAILY PO 12/11/24 10:00 UNV Patient Own Medication 40 mg DAILY PO 12/11/24 10:00 UNV Aspirin 81 mg DAILY PO 12/11/24 10:00 12/11/24 09:27 Atorvastatin Calcium (Lipitor) 40 mg HS PO 12/10/24 22:00 12/10/24 22:32 Morphine Sulfate 2 mg Q30MP PRN IV FOR CHEST PAIN 12/10/24 17:00 Docusate Sodium (Colace Capsule) 100 mg DAILY PO 12/11/24 10:00 12/11/24 09:28 Nitroglycerin (Ntrostat Sublingual) 0.4 mg Q5MINP PRN SL FOR CHEST PAIN 12/10/24 17:00 Nitroglycerin (Ntrostat Sublingual) 0.4 mg Q5MINP PRN SL FOR CHEST PAIN 12/10/24 17:00 UNV Pantoprazole Sodium (Protonix Tablet) 40 mg DAILY PO 12/11/24 10:00 12/11/24 09:28 Review of Systems Constitutional: No symptom reported Ears, Nose, & Throat: No symptom reported Eyes: No symptom reported Neurological: No symptoms reported Pulmonary/Respiratory: No symptoms reported Cardiovascular: Chest pain Gastrointestinal: No symptom reported Genitourinary: No symptom reported Musculoskeletal: No symptom reported Skin: No symptom reported Psychiatric: No symptom reported Endocrine: No symptom reported Hematologic/Lymphatic: No symptom reported Vital Signs Vital Signs Date Time Temp Pulse Resp B/P (MAP) Pulse Ox O2 Delivery O2 Flow Rate FiO2 12/11/24 09:27 80 133/73 12/11/24 09:00 97.7 18 95 97.7 12/11/24 08:00 Room Air* 0 21 Physical Exam General Appearance: Cooperative. Obese Pulmonary/Respiratory: Clear, bilateral breaths sounds. Cardiovascular/Chest: Regular rate and rhythm. Peripheral Pulses: 2+ Radial (R). 2+ Radial (L). 2+ Pedal (R). 2+ Pedal (L) Abdominal Exam: Normal bowel sounds. Ankle Exam: Negative ankle edema Lower extremities: Negative lower extremity edema Neuro/Mental Status: A/OX4, coherent. Thoughts/Psych: Normal thought pattern. Appropriate mood and affect. Good judgment and insight. Appearance: No acute distress. Skin Exam: Normal inspection. Normal color. Warm and dry. Labs/Diagnostic Data Labs Test 12/11/24 10:00 12/11/24 05:17 12/10/24 18:13 12/10/24 14:45 Range/Units White Blood Count 7.8 4.4-10.8 10^3/uL Red Blood Count 4.93 4.5-5.90 10^6/uL Hemoglobin 13.0 L 13.5-17.5 g/dL Hematocrit 38.7 L 41.0-53.0 % Mean Corpuscular Volume 78.5 L 80.0-100.0 fL Mean Corpuscular Hemoglobin 26.4 L 28.0-32.0 pg Mean Corpuscular Hemoglobin Concent 33.6 32.0-36.0 g/dL Red Cell Distribution Width 17.9 H 11.8-14.3 % Platelet Count 221 140-450 10^3/uL Mean Platelet Volume 8.2 6.9-10.8 fL Neutrophils (%) (Auto) 60.8 37.0-80.0 % Lymphocytes (%) (Auto) 22.9 10.0-50.0 % Monocytes (%) (Auto) 9.5 0.0-12.0 % Eosinophils (%) (Auto) 6.3 0.0-7.0 % Basophils (%) (Auto) 0.5 0.0-2.0 % Neutrophils # (Auto) 4.7 1.6-8.6 10 ^3/uL Lymphocytes # (Auto) 1.8 0.4-5.4 10 ^3/uL Monocytes # (Auto) 0.7 0-1.3 10 ^3/uL Eosinophils # (Auto) 0.5 0-0.8 10 ^3/uL Basophils # (Auto) 0 0-0.2 10 ^3/uL Nucleated Red Blood Cells 0.0 % Sodium Level 140 136-145 mmol/L Potassium Level 3.9 3.5-5.1 mmol/L Chloride Level 106 98-107 mmol/L Carbon Dioxide Level 23 20-31 mmol/L Anion Gap 11 5-15 Blood Urea Nitrogen 10 9-23 mg/dL Creatinine 0.81 0.700-1.30 mg/dL Glomerular Filtration Rate Calc 91 >90 mL/min BUN/Creatinine Ratio 12.3 10.0-20.0 Serum Glucose 104 74-106 mg/dL Calcium Level 9.8 8.7-10.4 mg/dL Magnesium Level 2.0 1.6-2.6 mg/dL Total Bilirubin 0.8 0.2-1.0 mg/dL Aspartate Amino Transferase (AST) 18 13-40 U/L Alanine Aminotransferase (ALT) 16 7-40 U/L Alkaline Phosphatase 78 46-116 U/L Total Protein 6.6 5.7-8.2 g/dL Albumin 4.3 3.2-4.8 g/dL Triglycerides Level 79 < 150 mg/dL Cholesterol Level 86 < 200 mg/dL LDL Cholesterol 34 < 100 mg/dL HDL Cholesterol 37 L 40-59 mg/dL Troponin I High Sensitivity 34 </=54 ng/L B-Type Natriuretic Peptide 105.60 0-100 pg/mL Assessment Chronic stable angina Coronary artery disease status post PCI to LAD and circumflex, RCA, and PDA (on Plavix and aspirin) Chronic HFpEF, NYHA class III Hypertension Dyslipidemia Tricuspid regurgitation, moderate degree Type 2 diabetes mellitus History prostate cancer status post resection Obesity Plan/Recommendation We will proceed with the following plan/recommendations (Dr. Alvarado): Patient seen and examined at bedside with Dr.Alvarado. The patient underwent a coronary angiogram with left heart catheterization on 07/05/24 and 07/07/24 in which there was successful PCI to LAD and circumflex as well as a successful staged PCI to RCA and PDA. We will recommend to continue with dual antiplatelet therapy and lipid-lowering agent. Transthoracic echocardiogram from 08/30/2024 reveals an EF of 60%. We will initiate the patient on Ranexa. Consider isosorbide outpatient if needed. Thank you for allowing us to care for this patient. Please call with any questions or concerns. Thank you for allowing us to care for this patient. Please call with any questions or concerns. Critical care time spent: 44 minutes This medical document was created using an electronic medical record system with voice recognition software and computerized dictation system. Although this document has been carefully reviewed, there might still be some phonetic and typographical errors. Occasional wrong-word or ``sound-alike substitutions may have occurred due to the inherent limitations of voice recognition software. These areas are purely typographical due to imperfections of the software programs and do not reflect any compromise in the patient's medical care. Please read the chart carefully and recognize, using context, where these substitutions have occurred. Plan discussed with: Patient NYHA Physical activity limitations: Class3(Marked) ordinary Date of Service: Dec 11, 2024 Billing Provider: CHAS WILLIAM Cardiology Common Codes: 26425-[id number] INP/OBS CARE (High) Cardiology Consultation Codes: [id number] CONSULT <45MIN CHAS WILLIAM Dec 11, 2024 10:20
[2024-12-11 10:37] LABS: Amphetamine Screen, Urine Neg (NEGATIVE); Barbiturate Scree,Urine Neg (NEGATIVE); Benzodiazephine Screen, Urine Neg (NEGATIVE)
[2024-12-11 10:38] LABS: Cannabinoid Screen, Urine Neg (NEGATIVE); Cocaine Screen, Urine Neg (NEGATIVE); Opiate Scree,Urine Neg (NEGATIVE); Phencyclidine Screen, Urine Neg (NEGATIVE)
--- NOTE | 2024-12-11 16:26 | DVHINCON2 ---
Date of service: Dec 11, 2024 History of Present Illness This is a pleasant Lebanese-speaking 79-year-old male patient who presents to emergency room with chief complaint of chest pain. The patient reports that the chest pain began approximately two days ago. He describes it as unprovoked, constant, pressure-like in nature, bilaterally with radiation to his mid upper back. He denies any associated symptoms. Initial twelve lead electrocardiogram reveals normal sinus rhythm with nonspecific ST segment changes to lateral leads. Initial troponin level of 36ng/L with flat trend thereafter. Significant past medical history includes coronary artery disease status post PTCA with successful PCI to LAD and circumflex as well as a successful staged PCI to RCA and PDA, ischemic cardiomyopathy, hypertension, dyslipidemia, type 2 diabetes mellitus, GERD, history prostate cancer status post resection, and obesity. 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 Past Medical History Past Medical History Past medical history reviewed. No other significant than mentioned above. Past Surgical History Past Surgical History Prostate surgery Hernia repair ORIF right distal radius fracture Family & Social History Family History: Cardiovascular disease G8 MOTHER Hypertension Family History Family history reviewed. Social History Denies the use of tobacco, alcohol or illicit drugs. Past Medical History reviewed Family History: Cardiovascular disease G8 MOTHER Hypertension Allergies: Coded Allergies: NO KNOWN ALLERGIES (Unverified , 11/09/23) Home Meds Active Scripts Empagliflozin (Jardiance) 10 Mg Tab, 10 MG PO DAILY for 30 Days, #30 TAB 4 Refills Prov:RUDDYTOMMIE RESIDENT 07/08/24 Metformin Hydrochloride (Metformin Hcl) 500 Mg Tab, 1 TAB PO BID for 30 Days, #60 TAB 3 Refills Prov:TOMMIE FOX RESIDENT 07/08/24 Atorvastatin Calcium (ATORVASTATIN CALCIUM) 40 Mg Tab, 1 TAB PO DAILY for 30 Days, #30 TAB 5 Refills Prov:TOMMIE FOX RESIDENT 07/08/24 Clopidogrel Bisulfate (CLOPIDOGREL) 75 Mg Tab, 1 TAB PO DAILY for 30 Days, #30 TAB 4 Refills Prov:TOMMIE FOX RESIDENT 07/08/24 Aspirin (Aspirin) 81 Mg Tab, 81 MG PO DAILY for 30 Days, #30 TAB 4 Refills Prov:TOMMIE FOX RESIDENT 07/08/24 Reported Medications Omeprazole (Gnp Omeprazole) 20 Mg Tab, 40 MG PO DAILY, TAB 07/05/24 Patients Own Medication (PATIENTS OWN MEDICATION) ., 100 MCG INH PTS OWN MED-OBTAIN FROM PT AND SEND TO RX DRUG: FREQ: RX# EXP: DATE DISP: TECH: [facility]: 11/09/23 Metoprolol Tartrate (LOPRESSOR TABLET) 50 Mg Tb, 1 TAB PO DAILY 11/09/23 Lisinopril (Lisinopril) 20 Mg Tab, 1 TAB PO DAILY 11/09/23 Current Medications Current Medications Medications (Trade) Dose Ordered Sig/Therese Route PRN Reason Start Time Stop Time Status Last Admin Aspirin (Ecotrin Enteric Coated Tablet) 81 mg DAILY PO 12/11/24 10:00 UNV Clopidogrel Bisulfate (Plavix) 75 mg DAILY PO 12/11/24 10:00 12/11/24 09:28 Empaglifozin (Jardiance) 10 mg DAILY PO 12/11/24 10:00 12/11/24 09:26 Lisinopril (Zestril Tablet) 20 mg DAILY PO 12/11/24 10:00 12/11/24 09:27 Metoprolol Tartrate (Lopressor Tablet) 50 mg DAILY PO 12/11/24 10:00 12/11/24 09:27 Patient Own Medication 1 tab DAILY PO 12/11/24 10:00 UNV Patient Own Medication 40 mg DAILY PO 12/11/24 10:00 UNV Aspirin 81 mg DAILY PO 12/11/24 10:00 12/11/24 09:27 Atorvastatin Calcium (Lipitor) 40 mg HS PO 12/10/24 22:00 12/10/24 22:32 Morphine Sulfate 2 mg Q30MP PRN IV FOR CHEST PAIN 12/10/24 17:00 Docusate Sodium (Colace Capsule) 100 mg DAILY PO 12/11/24 10:00 12/11/24 09:28 Nitroglycerin (Ntrostat Sublingual) 0.4 mg Q5MINP PRN SL FOR CHEST PAIN 12/10/24 17:00 Nitroglycerin (Ntrostat Sublingual) 0.4 mg Q5MINP PRN SL FOR CHEST PAIN 12/10/24 17:00 UNV Pantoprazole Sodium (Protonix Tablet) 40 mg DAILY PO 12/11/24 10:00 12/11/24 09:28 Ranolazine (Ranexa ER) 500 mg BID PO 12/11/24 22:00 Review of Systems 10 pt ros otherweise negative Vital Signs Vital Signs Date Time Temp Pulse Resp B/P (MAP) Pulse Ox O2 Delivery O2 Flow Rate FiO2 12/11/24 12:35 97.7 60 18 117/75 (89) 95 97.7 12/11/24 08:00 Room Air* 0 21 Physical Exam nad s1 s2 rrr ctab soft nt/nd no edema Labs/Diagnostic Data Labs Test 12/11/24 10:00 12/11/24 05:17 12/10/24 18:13 12/10/24 14:45 Range/Units Urine Opiates Screen Neg NEGATIVE Urine Fentanyl Screen Neg NEGATIVE Urine Barbiturates Screen Neg NEGATIVE Urine Phencyclidine Screen Neg NEGATIVE Urine Amphetamines Screen Neg NEGATIVE Urine Benzodiazepines Screen Neg NEGATIVE Urine Cocaine Screen Neg NEGATIVE Urine Cannabinoids Screen Neg NEGATIVE White Blood Count 7.8 4.4-10.8 10^3/uL Red Blood Count 4.93 4.5-5.90 10^6/uL Hemoglobin 13.0 L 13.5-17.5 g/dL Hematocrit 38.7 L 41.0-53.0 % Mean Corpuscular Volume 78.5 L 80.0-100.0 fL Mean Corpuscular Hemoglobin 26.4 L 28.0-32.0 pg Mean Corpuscular Hemoglobin Concent 33.6 32.0-36.0 g/dL Red Cell Distribution Width 17.9 H 11.8-14.3 % Platelet Count 221 140-450 10^3/uL Mean Platelet Volume 8.2 6.9-10.8 fL Neutrophils (%) (Auto) 60.8 37.0-80.0 % Lymphocytes (%) (Auto) 22.9 10.0-50.0 % Monocytes (%) (Auto) 9.5 0.0-12.0 % Eosinophils (%) (Auto) 6.3 0.0-7.0 % Basophils (%) (Auto) 0.5 0.0-2.0 % Neutrophils # (Auto) 4.7 1.6-8.6 10 ^3/uL Lymphocytes # (Auto) 1.8 0.4-5.4 10 ^3/uL Monocytes # (Auto) 0.7 0-1.3 10 ^3/uL Eosinophils # (Auto) 0.5 0-0.8 10 ^3/uL Basophils # (Auto) 0 0-0.2 10 ^3/uL Nucleated Red Blood Cells 0.0 % Sodium Level 140 136-145 mmol/L Potassium Level 3.9 3.5-5.1 mmol/L Chloride Level 106 98-107 mmol/L Carbon Dioxide Level 23 20-31 mmol/L Anion Gap 11 5-15 Blood Urea Nitrogen 10 9-23 mg/dL Creatinine 0.81 0.700-1.30 mg/dL Glomerular Filtration Rate Calc 91 >90 mL/min BUN/Creatinine Ratio 12.3 10.0-20.0 Serum Glucose 104 74-106 mg/dL Hemoglobin A1c 6.4 H <5.7 % A1C Calcium Level 9.8 8.7-10.4 mg/dL Magnesium Level 2.0 1.6-2.6 mg/dL Total Bilirubin 0.8 0.2-1.0 mg/dL Aspartate Amino Transferase (AST) 18 13-40 U/L Alanine Aminotransferase (ALT) 16 7-40 U/L Alkaline Phosphatase 78 46-116 U/L Total Protein 6.6 5.7-8.2 g/dL Albumin 4.3 3.2-4.8 g/dL Triglycerides Level 79 < 150 mg/dL Cholesterol Level 86 < 200 mg/dL LDL Cholesterol 34 < 100 mg/dL HDL Cholesterol 37 L 40-59 mg/dL Thyroid Stimulating Hormone (TSH) 2.19 0.55-4.78 uIU/mL Troponin I High Sensitivity 34 </=54 ng/L B-Type Natriuretic Peptide 105.60 0-100 pg/mL Assessment acs hx of cad htn hl Plan/Recommendation agree with PMP assessment and plan personally reviewed previous cath films pt has multivessel cad chronic angina--cont dapt start BB add ranexa fu with his cards dr fatmata hendrickson are - Plan discussed with: Patient ROSARIO HENSLEY MD Dec 11, 2024 16:26
--- NOTE | 2024-12-11 16:35 | DVHPNRES ---
Progress Note Date Seen: Dec 11, 2024 Resident Creating Document: GARIMA MAURICE RESIDENT Medical Necessity Reason Pt with a Central, PICC or Fol: No Subjective Review of Systems 79-year-old male with past medical history of triple-vessel disease status post multiple PCI, heart failure with mildly reduced ejection fraction, diabetes mellitus, dyslipidemia, asthma presented with chest pain. Patient mentioned that he started having chest pain which was substernal radiating to left and right side of the chest on Wednesday which was on and off but worsened on Wednesday that made him to come to the ER. Patient mentioned that this pain was relieved with rest and increased with activity. He did not take any medications to get relief of the pain. He denied any shortness of breath, nausea, vomiting, During the hospital stay, patient was evaluated by filament coil winder. Patient had normal EKG and troponin With the patient mentioned no chest pain and no other symptoms Patient reports: No new complaints, Feels better Objective vital signs Vital Sign Date Time Temp Pulse Resp B/P (MAP) Pulse Ox O2 Delivery O2 Flow Rate FiO2 12/11/24 12:35 97.7 60 18 117/75 (89) 95 97.7 12/11/24 08:00 Room Air* 0 21 Total Intake and Output 12/10/24 12/10/24 12/11/24 15:00 23:00 07:00 Intake Total 240 ml Balance 240 ml medications Current Medications Medications Dose Ordered Sig/Therese Route Start Time Stop Time Status Last Admin Dose Admin Aspirin 81 mg DAILY PO 12/11/24 10:00 UNV Clopidogrel Bisulfate 75 mg DAILY PO 12/11/24 10:00 12/11/24 09:28 75 MG Empaglifozin 10 mg DAILY PO 12/11/24 10:00 12/11/24 09:26 10 MG Lisinopril 20 mg DAILY PO 12/11/24 10:00 12/11/24 09:27 20 MG Metoprolol Tartrate 50 mg DAILY PO 12/11/24 10:00 12/11/24 09:27 50 MG Patient Own Medication 1 tab DAILY PO 12/11/24 10:00 UNV Patient Own Medication 40 mg DAILY PO 12/11/24 10:00 UNV Aspirin 81 mg DAILY PO 12/11/24 10:00 12/11/24 09:27 81 MG Atorvastatin Calcium 40 mg HS PO 12/10/24 22:00 12/10/24 22:32 40 MG Morphine Sulfate 2 mg Q30MP PRN IV 12/10/24 17:00 Docusate Sodium 100 mg DAILY PO 12/11/24 10:00 12/11/24 09:28 100 MG Nitroglycerin 0.4 mg Q5MINP PRN SL 12/10/24 17:00 Nitroglycerin 0.4 mg Q5MINP PRN SL 12/10/24 17:00 UNV Pantoprazole Sodium 40 mg DAILY PO 12/11/24 10:00 12/11/24 09:28 40 MG Ranolazine 500 mg BID PO 12/11/24 22:00 Examination Examination General Appearance: Alert, Oriented X3, Cooperative, No acute distress HEENT: EOMI Respiratory: Clear to auscultation, Normal air movement Cardiovascular: Regular rate, Normal S1, Normal S2 Abdominal: Normal bowel sounds Extremities: No cyanosis, No edema, Normal pulses, No tenderness/swelling Skin: No rashes, No breakdown Neuro: Normal gait, Normal speech, Strength at 5/5 X4 ext, Normal tone, Sensation intact, Cranial nerves 3-12 NL, Reflexes 2+ Psych/Mental Status: Mental status NL, Mood NL laboratory and microbiology Laboratory Tests 12/11/24 05:17 Test 12/11/24 05:17 Range/Units Serum Glucose 104 74-106 mg/dL Labs and/or images reviewed: Labs reviewed by me, Image(s) reviewed by me Problem List/Assessment/Plan Problem List/Assessment/Plan Assessment/plan # Chest pain, likely stable angina, rule out ACS # CAD status post PCIs EKG Telemetry Troponin Cardiology consult Echocardiogram Resume aspirin, Plavix, metoprolol, statins # Heart failure with mildly reduced ejection fraction due to ischemic cardiomyopathy, stable Resume home medication metoprolol, lisinopril, Jardiance # Type 2 diabetes mellitus Monitor blood sugars # GERD Resume home meds # Prostate cancer status post resection Code status discussed with the patient for 20 minutes, full code Case discussion with Dr. Moody Plan discussed with: Patient, Other Addendum Addendum Addendum I was physically present for the banda portions of the service provided to patient by THE RESIDENT. I have reviewed the documentation, discussed the case with resident and agree with the resident's documentation except as noted. Also the patient's clinical case was discussed with the patient's nurse. This medical document was created using an electronic medical record system with computerized dictation system. Although this document has been carefully reviewed, there might still be some phonetic and typographical errors. These areas are purely typographical due to imperfections of the software programs, and do not reflect any compromise in the patient's medical care. Late signature. Date of Service: Dec 11, 2024 Billing Provider: BRETT MOODY MD Common Visit Codes: [id number] INP/OBS CARE(HIGH) Secondary Visit Codes: [id number] CARE PLAN 30 MINUTES (20 minutes) GARIMA MAURICE RESIDENT Dec 11, 2024 16:35 BRETT MOODY MD Dec 12, 2024 08:29
[2024-12-11] MEDS: RANOLAZINE ER 500 MG TAB PO SCH (21:44)
--- NOTE | 2024-12-11 22:27 | DVHINCON2 ---
Date of service: Dec 11, 2024 Referring Physician Latricia Ordoñez NP Reason for Consultation Dyspnea. History of Present Illness A 79-year-old man with past medical history of asthma, NSTEMI, ischemic cardiomyopathy, CAD s/p PTCA with 5 stents in 06/2024, CHF, diabetes mellitus, dyslipidemia and GERD who presented to ED on 12/10/24 with c/o chest pain, onset day prior to presentation. Patient complained of associated shortness of breath. No cough, fever, leg swelling or calf pain. Patient stated the chest pain started while he was watching TV. Patient follows as outpatient with Cardiology, Dr. Castro. Initial labs revealed CBC and CMP unremarkable, troponin negative. No chest x-ray was done. Initial 12-lead electrocardiogram revealed NSR with nonspecific ST segment changes to lateral leads. Patient was admitted for further care, and pulmonary consultation is requested for evaluation and management due to dyspnea in patient with asthma. Review of Systems: 14-point review of systems negative unless otherwise noted above. Past Medical History: Asthma, coronary artery disease s/p PTCA, NSTEMI, CHF with moderately reduced EF of 40-45%, ischemic cardiomyopathy, hypertension, dyslipidemia, type 2 DM (new diagnosis -Hb A1c 6.7), GERD, prostate cancer s/p resection. Past Surgical History: PTCA with PCI to LAD and circumflex; staged PCI to RCA and PDA. Surgery for prostate cancer (resection) Medications: Reviewed. Allergies: No known drug allergies. Family History: Family history of hypertension and heart disease. Social History: Nonsmoker. No alcohol or illicit drug use. Family History: Cardiovascular disease G8 MOTHER Hypertension Allergies: Coded Allergies: NO KNOWN ALLERGIES (Unverified , 11/09/23) Home Meds Active Scripts Ranolazine (Ranolazine ER) 500 Mg Tab, 500 MG PO BID for 30 Days, #60 TAB Prov:GARIMA MAURICE RESIDENT 12/12/24 Empagliflozin (Jardiance) 10 Mg Tab, 10 MG PO DAILY for 30 Days, #30 TAB 4 Refills Prov:TOMMIE FOX RESIDENT 07/08/24 Metformin Hydrochloride (Metformin Hcl) 500 Mg Tab, 1 TAB PO BID for 30 Days, #60 TAB 3 Refills Prov:TOMMIE FOX RESIDENT 07/08/24 Atorvastatin Calcium (ATORVASTATIN CALCIUM) 40 Mg Tab, 1 TAB PO DAILY for 30 Days, #30 TAB 5 Refills Prov:TOMMIE FOX RESIDENT 07/08/24 Clopidogrel Bisulfate (CLOPIDOGREL) 75 Mg Tab, 1 TAB PO DAILY for 30 Days, #30 TAB 4 Refills Prov:TOMMIE FOX RESIDENT 07/08/24 Aspirin (Aspirin) 81 Mg Tab, 81 MG PO DAILY for 30 Days, #30 TAB 4 Refills Prov:TOMMIE FOX RESIDENT 07/08/24 Reported Medications Omeprazole (Gnp Omeprazole) 20 Mg Tab, 40 MG PO DAILY, TAB 07/05/24 Patients Own Medication (PATIENTS OWN MEDICATION) ., 100 MCG INH PTS OWN MED-OBTAIN FROM PT AND SEND TO RX DRUG: FREQ: RX# EXP: DATE DISP: TECH: [facility]: 11/09/23 Metoprolol Tartrate (LOPRESSOR TABLET) 50 Mg Tb, 1 TAB PO DAILY 11/09/23 Lisinopril (Lisinopril) 20 Mg Tab, 1 TAB PO DAILY 11/09/23 Current Medications Current Medications Medications (Trade) Dose Ordered Sig/Therese Route PRN Reason Start Time Stop Time Status Last Admin Aspirin (Ecotrin Enteric Coated Tablet) 81 mg DAILY PO 12/11/24 10:00 UNV Clopidogrel Bisulfate (Plavix) 75 mg DAILY PO 12/11/24 10:00 12/11/24 09:28 Empaglifozin (Jardiance) 10 mg DAILY PO 12/11/24 10:00 12/11/24 09:26 Lisinopril (Zestril Tablet) 20 mg DAILY PO 12/11/24 10:00 12/11/24 09:27 Metoprolol Tartrate (Lopressor Tablet) 50 mg DAILY PO 12/11/24 10:00 12/11/24 09:27 Patient Own Medication 1 tab DAILY PO 12/11/24 10:00 UNV Patient Own Medication 40 mg DAILY PO 12/11/24 10:00 UNV Aspirin 81 mg DAILY PO 12/11/24 10:00 12/11/24 09:27 Docusate Sodium (Colace Capsule) 100 mg DAILY PO 12/11/24 10:00 12/11/24 09:28 Pantoprazole Sodium (Protonix Tablet) 40 mg DAILY PO 12/11/24 10:00 12/11/24 09:28 Ranolazine (Ranexa ER) 500 mg BID PO 12/11/24 22:00 12/11/24 21:44 Vital Signs Vital Signs Date Time Temp Pulse Resp B/P (MAP) Pulse Ox O2 Delivery O2 Flow Rate FiO2 12/11/24 21:00 98.0 69 15 126/73 (90) 96 98.0 12/11/24 08:00 Room Air* 0 21 Physical Exam Gen.: Patient lying in bed in no apparent distress. Breathing on room air. Head: Normocephalic, atraumatic. Eyes: EOMI/PERRLA. Ears: Normal hearing. Normal anatomy. Neck/trachea: Trachea midline, supple. Nose: Normal external anatomy. Mouth: Moist mucous membranes. Chest: Decreased air entry bilaterally. No wheezing or rhonchi. Cardiovascular: Positive S1, positive S2. Regular rate and rhythm. Abdomen: Positive bowel sounds in all 4 quadrants. Soft, non-tender, non- distended. : Deferred. Rectal: Deferred. Skin: Warm, dry. Intact. Extremities: 2+ radial pulses bilaterally. No lower extremity edema. Neuro: Awake, alert, oriented x3. No gross motor or sensory deficits. Cranial nerves II through XII intact. Gait not assessed. Labs/Diagnostic Data Labs Test 12/11/24 10:00 12/11/24 05:17 12/10/24 18:13 12/10/24 14:45 Range/Units Urine Opiates Screen Neg NEGATIVE Urine Fentanyl Screen Neg NEGATIVE Urine Barbiturates Screen Neg NEGATIVE Urine Phencyclidine Screen Neg NEGATIVE Urine Amphetamines Screen Neg NEGATIVE Urine Benzodiazepines Screen Neg NEGATIVE Urine Cocaine Screen Neg NEGATIVE Urine Cannabinoids Screen Neg NEGATIVE White Blood Count 7.8 4.4-10.8 10^3/uL Red Blood Count 4.93 4.5-5.90 10^6/uL Hemoglobin 13.0 L 13.5-17.5 g/dL Hematocrit 38.7 L 41.0-53.0 % Mean Corpuscular Volume 78.5 L 80.0-100.0 fL Mean Corpuscular Hemoglobin 26.4 L 28.0-32.0 pg Mean Corpuscular Hemoglobin Concent 33.6 32.0-36.0 g/dL Red Cell Distribution Width 17.9 H 11.8-14.3 % Platelet Count 221 140-450 10^3/uL Mean Platelet Volume 8.2 6.9-10.8 fL Neutrophils (%) (Auto) 60.8 37.0-80.0 % Lymphocytes (%) (Auto) 22.9 10.0-50.0 % Monocytes (%) (Auto) 9.5 0.0-12.0 % Eosinophils (%) (Auto) 6.3 0.0-7.0 % Basophils (%) (Auto) 0.5 0.0-2.0 % Neutrophils # (Auto) 4.7 1.6-8.6 10 ^3/uL Lymphocytes # (Auto) 1.8 0.4-5.4 10 ^3/uL Monocytes # (Auto) 0.7 0-1.3 10 ^3/uL Eosinophils # (Auto) 0.5 0-0.8 10 ^3/uL Basophils # (Auto) 0 0-0.2 10 ^3/uL Nucleated Red Blood Cells 0.0 % Sodium Level 140 136-145 mmol/L Potassium Level 3.9 3.5-5.1 mmol/L Chloride Level 106 98-107 mmol/L Carbon Dioxide Level 23 20-31 mmol/L Anion Gap 11 5-15 Blood Urea Nitrogen 10 9-23 mg/dL Creatinine 0.81 0.700-1.30 mg/dL Glomerular Filtration Rate Calc 91 >90 mL/min BUN/Creatinine Ratio 12.3 10.0-20.0 Serum Glucose 104 74-106 mg/dL Hemoglobin A1c 6.4 H <5.7 % A1C Calcium Level 9.8 8.7-10.4 mg/dL Magnesium Level 2.0 1.6-2.6 mg/dL Total Bilirubin 0.8 0.2-1.0 mg/dL Aspartate Amino Transferase (AST) 18 13-40 U/L Alanine Aminotransferase (ALT) 16 7-40 U/L Alkaline Phosphatase 78 46-116 U/L Total Protein 6.6 5.7-8.2 g/dL Albumin 4.3 3.2-4.8 g/dL Triglycerides Level 79 < 150 mg/dL Cholesterol Level 86 < 200 mg/dL LDL Cholesterol 34 < 100 mg/dL HDL Cholesterol 37 L 40-59 mg/dL Thyroid Stimulating Hormone (TSH) 2.19 0.55-4.78 uIU/mL Troponin I High Sensitivity 34 </=54 ng/L B-Type Natriuretic Peptide 105.60 0-100 pg/mL Assessment Impression: Dyspnea Chest pain CAD, s/p PTCA with 5 stents Asthma, stable Eosinophilic asthma Congestive heart failure Plan: Supplemental oxygen PRN Titrate to keep O2 sats above 92%. Pain control Avoid oversedation Blood pressure control Monitor blood sugars Follow up Cardiology recommendations On Lipitor and Plavix Protonix for GI prophylaxis Monitor renal function. Monitor electrolytes. Supplement as necessary. Monitor ins and outs. GI/DVT prophylaxis. Prognosis: Poor given patient's multiple co-morbidities. Rest of plan per hospitalist and other consultants. Thank you, MARY Ordoñez, for allowing me to participate in this patient's care. Further recommendations will depend on the patient's clinical course. Please do not hesitate to contact me if you have any questions or concerns. This medical document was created using an electronic medical record system with [employer] dictation system. Although these documentations are being carefully reviewed, there may still be some phonetic and typographical changes. The errors are purely typographical, due to imperfection on the software program, and do not reflect any compromise in the patient's medical care. Plan discussed with: Patient, Spouse, Other (JEREMIAH Verma/MARY Ordoñez/) TERA RAY MD Dec 11, 2024 22:27
[2024-12-12 01:00] VITALS: BP 107/54; PULSE 67; RESP 18; TEMP 98.3; O2SAT 94
[2024-12-12 05:00] VITALS: BP 115/60; PULSE 77; RESP 16; TEMP 98; O2SAT 98
[2024-12-12 06:51] LABS: Alanine Aminotransferase 16 U/L (7-40); Albumin 4.3 g/dL (3.2-4.8); Alkaline Phosphatase 79 U/L (46-116); Anion Gap 11 (5-15); BUN/Creatinine Ratio 11.5 (10.0-20.0); Blood Urea Nitrogen 11 mg/dL (9-23); Calcium 9.9 mg/dL (8.7-10.4); Carbon Dioxide 24 mmol/L (20-31); Chloride 105 mmol/L (98-107); Glucose 102 mg/dL (74-106); Potassium 4.2 mmol/L (3.5-5.1); Sodium 140 mmol/L (136-145); Total Protein 6.7 g/dL (5.7-8.2)
[2024-12-12 06:52] LABS: Bilirubin, Total 0.7 mg/dL (0.2-1.0)
[2024-12-12 08:00] VITALS: PULSE 85; O2SAT 98
[2024-12-12 09:00] VITALS: BP 115/73; PULSE 68; RESP 16; TEMP 98.1; O2SAT 96
[2024-12-12] MEDS ORDERED: RANO500T3 PO (11:02)
[2024-12-12 11:15] VITALS: BP 115/73; PULSE 68; TEMP 36.7
--- NOTE | 2024-12-12 18:55 | DVHDSRES ---
Discharge Summary Date of Admission Resident Creating Document: GARIMA MAURICE RESIDENT Dec 10, 2024 at 16:49 Date of Discharge: Dec 12, 2024 Admitting Diagnosis Chest pain Labs/Diagnostic Data: Laboratory Results Test 12/12/24 05:41 12/11/24 10:00 12/11/24 05:17 12/10/24 18:13 Sodium Level 140 mmol/L (136-145) Potassium Level 4.2 mmol/L (3.5-5.1) Chloride Level 105 mmol/L (98-107) Carbon Dioxide Level 24 mmol/L (20-31) Anion Gap 11 (5-15) Blood Urea Nitrogen 11 mg/dL (9-23) Creatinine 0.96 mg/dL (0.700-1.30) Glomerular Filtration Rate Calc 81 mL/min (>90) BUN/Creatinine Ratio 11.5 (10.0-20.0) Serum Glucose 102 mg/dL (74-106) Calcium Level 9.9 mg/dL (8.7-10.4) Total Bilirubin 0.7 mg/dL (0.2-1.0) Aspartate Amino Transferase (AST) 19 U/L (13-40) Alanine Aminotransferase (ALT) 16 U/L (7-40) Alkaline Phosphatase 79 U/L (46-116) Total Protein 6.7 g/dL (5.7-8.2) Albumin 4.3 g/dL (3.2-4.8) Urine Opiates Screen Neg (NEGATIVE) Urine Fentanyl Screen Neg (NEGATIVE) Urine Barbiturates Screen Neg (NEGATIVE) Urine Phencyclidine Screen Neg (NEGATIVE) Urine Amphetamines Screen Neg (NEGATIVE) Urine Benzodiazepines Screen Neg (NEGATIVE) Urine Cocaine Screen Neg (NEGATIVE) Urine Cannabinoids Screen Neg (NEGATIVE) White Blood Count 7.8 10^3/uL (4.4-10.8) Red Blood Count 4.93 10^6/uL (4.5-5.90) Hemoglobin 13.0 g/dL (13.5-17.5) Hematocrit 38.7 % (41.0-53.0) Mean Corpuscular Volume 78.5 fL (80.0-100.0) Mean Corpuscular Hemoglobin 26.4 pg (28.0-32.0) Mean Corpuscular Hemoglobin Concent 33.6 g/dL (32.0-36.0) Red Cell Distribution Width 17.9 % (11.8-14.3) Platelet Count 221 10^3/uL (140-450) Mean Platelet Volume 8.2 fL (6.9-10.8) Neutrophils (%) (Auto) 60.8 % (37.0-80.0) Lymphocytes (%) (Auto) 22.9 % (10.0-50.0) Monocytes (%) (Auto) 9.5 % (0.0-12.0) Eosinophils (%) (Auto) 6.3 % (0.0-7.0) Basophils (%) (Auto) 0.5 % (0.0-2.0) Neutrophils # (Auto) 4.7 10 ^3/uL (1.6-8.6) Lymphocytes # (Auto) 1.8 10 ^3/uL (0.4-5.4) Monocytes # (Auto) 0.7 10 ^3/uL (0-1.3) Eosinophils # (Auto) 0.5 10 ^3/uL (0-0.8) Basophils # (Auto) 0 10 ^3/uL (0-0.2) Nucleated Red Blood Cells 0.0 % Hemoglobin A1c 6.4 % A1C (<5.7) Magnesium Level 2.0 mg/dL (1.6-2.6) Triglycerides Level 79 mg/dL (< 150) Cholesterol Level 86 mg/dL (< 200) LDL Cholesterol 34 mg/dL (< 100) HDL Cholesterol 37 mg/dL (40-59) Thyroid Stimulating Hormone (TSH) 2.19 uIU/mL (0.55-4.78) Troponin I High Sensitivity 34 ng/L (</=54) Test 12/10/24 14:45 B-Type Natriuretic Peptide 105.60 pg/mL (0-100) Other Laboratory Tests 12/12/24 05:41 12/11/24 05:17 Brief Hx & Hospital Course: A 79-year-old male patient with past medical history of triple-vessel disease status post multiple PCI, heart failure with mildly reduced ejection fraction, diabetes mellitus, dyslipidemia, asthma presented with chest pain. Patient mentioned that she started having chest pain shows substernal radiating to left and right side of the chest on Wednesday which was on and off but worsened on Wednesday that made him come to the ER. Patient mentioned that this pain was relieved with rest and increased with activity. On arrival to the ER, patient had EKG done which was not showing any ST changes, troponin levels were normal. Materials Supervisor was consulted and sample driller recommended ranolazine 500 mg b.i.d. patient mentioned improvement in his symptoms. At the time of discharge, patient is stable vitals, no new complaints. Discharge plan was discussed with the patient and patient advised to follow up with PCP/DC clinic in one week and sample driller within 1-2 week. Patient was discharged on ranolazine 500 mg b.i.d. and was continued on the rest of the medications. Physical examination on the day of discharge Examination General Appearance: Alert, Oriented X3, Cooperative, No acute distress HEENT: EOMI Respiratory: Clear to auscultation, Normal air movement Cardiovascular: Regular rate, Normal S1, Normal S2 Abdominal: Normal bowel sounds Extremities: No cyanosis, No edema, Normal pulses, No tenderness/swelling Skin: No rashes, No breakdown Neuro: Normal gait, Normal speech, Strength at 5/5 X4 ext, Normal tone, Sensation intact, Cranial nerves 3-12 NL, Reflexes 2+ Psych/Mental Status: Mental status NL, Mood NL Discussed with Dr. Moody Consults/Reason for consult Cardiology consulted for chest pain Condition at Discharge: Stable Final Diagnosis/Problems List # Chest pain, likely stable angina, ruled out ACS # CAD status post PCIs # Heart failure with mildly reduced ejection fraction due to ischemic cardiomyopathy, stable # Type 2 diabetes mellitus # GERD # Prostate cancer status post resection Discharge Disposition: Home Discharge Instruct/Medications Diet: Cardiac 2g Na,low cholest Activity: No Restrictions, As Tolerated Follow Up/Referral: f/u with DC clininc within 1 week f/u with Materials Supervisor within 2 week Medications: Ranolazine Scheduled Aspirin (Aspirin), 81 MG PO DAILY Atorvastatin Calcium (Atorvastatin Calcium), 1 TAB PO DAILY Clopidogrel Bisulfate (Clopidogrel), 1 TAB PO DAILY Empagliflozin (Jardiance), 10 MG PO DAILY Lisinopril (Lisinopril), 1 TAB PO DAILY, (Reported) Metformin Hydrochloride (Metformin Hcl), 1 TAB PO BID Metoprolol Tartrate (Lopressor Tablet), 1 TAB PO DAILY, (Reported) Omeprazole (Gnp Omeprazole), 40 MG PO DAILY, (Reported) Ranolazine (Ranolazine ER), 500 MG PO BID Miscellaneous Medications Patients Own Medication (Patients Own Medication), 100 MCG INH, (Reported) Discharge Statement: "Patient was advised to return to the ER or call 911 if any headaches, dizziness, shortness of breath, chest pain, abdominal pain, bleeding, fevers, or worsening of medical condition. Patient was counseled about treatment plan, medications, possible side effects, patientverbalized understanding. All questions were answered to the best of my ability. This discharge took greater then 30 minutes in planning, reviewing documentation, counseling the patient, and discussing with other team members." Addendum Addendum Addendum I was physically present for the banda portions of the service provided to patient by THE RESIDENT. I have reviewed the documentation, discussed the case with resident and agree with the resident's documentation except as noted. Also the patient's clinical case was discussed with the patient's nurse. This medical document was created using an electronic medical record system with computerized dictation system. Although this document has been carefully reviewed, there might still be some phonetic and typographical errors. These areas are purely typographical due to imperfections of the software programs, and do not reflect any compromise in the patient's medical care. Late signature. Date of Service: Dec 12, 2024 Billing Provider: BRETT MOODY MD Common Visit Codes: 50896-UAX/OBS DISCH DAY >30min GARIMA MAURICE RESIDENT Dec 12, 2024 18:55 BRETT MOODY MD Dec 13, 2024 22:46
--- NOTE | 2024-12-12 22:48 | DVHPN2 ---
Progress Note - Dictate Date Seen: Dec 12, 2024 Medical Necessity Reason Pt with a Central, PICC or Fol: No Subjective Patient seen and examined at bedside. Breathing comfortably on room air. Overnight events reviewed. vital signs Vital Sign Date Time Temp Pulse Resp B/P (MAP) Pulse Ox O2 Delivery O2 Flow Rate FiO2 12/12/24 11:15 36.7 68 12/12/24 10:30 126/74 12/12/24 09:00 16 96 12/12/24 08:00 Room Air* 0 21 Total Intake and Output 12/11/24 12/11/24 12/12/24 15:00 23:00 07:00 Intake Total 1600 ml 500 ml Balance 1600 ml 500 ml medications Current Medications Medications Dose Ordered Sig/Therese Route Start Time Stop Time Status Last Admin Dose Admin Aspirin 81 mg DAILY PO 12/11/24 10:00 UNV Patient Own Medication 1 tab DAILY PO 12/11/24 10:00 UNV Patient Own Medication 40 mg DAILY PO 12/11/24 10:00 UNV Nitroglycerin 0.4 mg Q5MINP PRN SL 12/10/24 17:00 UNV objective Gen.: Patient lying in bed in no apparent distress. Breathing on room air. Head: Normocephalic, atraumatic. Eyes: EOMI/PERRLA. Ears: Normal hearing. Normal anatomy. Neck/trachea: Trachea midline, supple. Nose: Normal external anatomy. Mouth: Moist mucous membranes. Chest: Decreased air entry bilaterally. No wheezing or rhonchi. Cardiovascular: Positive S1, positive S2. Regular rate and rhythm. Abdomen: Positive bowel sounds in all 4 quadrants. Soft, non-tender, non- distended. : Deferred. Rectal: Deferred. Skin: Warm, dry. Intact. Extremities: 2+ radial pulses bilaterally. No lower extremity edema. Neuro: Awake, alert, oriented x3. No gross motor or sensory deficits. Cranial nerves II through XII intact. Gait not assessed. laboratory and microbiology Laboratory Tests 12/12/24 05:41 12/11/24 05:17 Test 12/12/24 05:41 Range/Units Serum Glucose 102 74-106 mg/dL Assessment/Plan Impression: Dyspnea Chest pain CAD, s/p PTCA with 5 stents Asthma Congestive heart failure Events: Breathing on room air Supplemental oxygen PRN No overnight events Echo reviewed. Cardiology recommendations appreciated. Blood pressure control Protonix for GI ppx Follow up in Pulmonary Clinic in 2 weeks. Labs and imaging reviewed. Rest of plan as noted below. Plan: Supplemental oxygen PRN Titrate to keep O2 sats above 92%. Pain control Avoid oversedation Blood pressure control Monitor blood sugars Follow up Cardiology recommendations On Lipitor and Plavix Protonix for GI prophylaxis Monitor renal function. Monitor electrolytes. Supplement as necessary. Monitor ins and outs. GI/DVT prophylaxis. Prognosis: Poor given patient's multiple co-morbidities. Rest of plan per hospitalist and other consultants. Thank you, MARY Ordoñez, for allowing me to participate in this patient's care. Further recommendations will depend on the patient's clinical course. Please do not hesitate to contact me if you have any questions or concerns. This medical document was created using an electronic medical record system with [employer] dictation system. Although these documentations are being carefully reviewed, there may still be some phonetic and typographical changes. The errors are purely typographical, due to imperfection on the software program, and do not reflect any compromise in the patient's medical care. Plan discussed with: Patient, Other (JEREMIAH Verma) TERA RAY MD Dec 12, 2024 22:48
--- NOTE | 2024-12-14 06:27 | ECG ---
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
--- NOTE | 2024-12-14 06:27 | ECG ---
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
== END 2024-12-12 11:40 | disposition home or self-care (01) | DRG 303 ==
LOC: ER 14:43 → OVERFLOW 16:49 → TELE-CENTR 21:59
PROVIDERS: ADMIT Internal Medicine; ATTEND Internal Medicine
DX: I25.118 Atherosclerotic heart disease of native coronary artery with other forms of angina pectoris (principal); J82.83 Eosinophilic asthma; I50.22 Chronic systolic (congestive) heart failure; I07.1 Rheumatic tricuspid insufficiency; E78.5 Hyperlipidemia, unspecified; E11.9 Type 2 diabetes mellitus without complications; K21.9 Gastro-esophageal reflux disease without esophagitis; I11.0 Hypertensive heart disease with heart failure; J45.909 Unspecified asthma, uncomplicated; F17.200 Nicotine dependence, unspecified, uncomplicated; E66.9 Obesity, unspecified; I25.5 Ischemic cardiomyopathy; Z82.49 Family history of ischemic heart disease and other diseases of the circulatory system; Z85.46 Personal history of malignant neoplasm of prostate; Z79.84 Long term (current) use of oral hypoglycemic drugs; Z79.82 Long term (current) use of aspirin; Z79.899 Other long term (current) drug therapy; I25.2 Old myocardial infarction; Z98.61 Coronary angioplasty status; Z68.27 Body mass index [BMI] 27.0-27.9, adult
CPT/HCPCS: 36415; 71045; 80048; 80053; 80061; 80307; 83036; 83735; 83880; 84443; 84484; 85025; 93005; G0378

== ENCOUNTER → 2025-01-02 | Outpatient (CLI) | payer OTHER, MEDICAID ==
[~2025-01-02] MED LIST changes: +RANO500T3 PO
[2025-01-02 09:02] LABS: Hemoglobin 14.1 g/dL (13.5-17.5)
[2025-01-02 09:04] LABS: Hematocrit 41.9 % (41.0-53.0); Mean Corpuscular Hemoglobin 26.4 pg (28.0-32.0); Mean Corpuscular Volume 78.7 fL (80.0-100.0); Nucleated Red Blood Cells % 0.1 %
[2025-01-02 09:16] LABS: Alanine Aminotransferase 17 U/L (7-40); Albumin 4.7 g/dL (3.2-4.8); Alkaline Phosphatase 90 U/L (46-116); Anion Gap 12 (5-15); BUN/Creatinine Ratio 8.7 (10.0-20.0); Bilirubin, Total 0.7 mg/dL (0.2-1.0); Calcium 9.5 mg/dL (8.7-10.4); Carbon Dioxide 23 mmol/L (20-31); Chloride 105 mmol/L (98-107); Potassium 4.0 mmol/L (3.5-5.1); Sodium 140 mmol/L (136-145); Total Protein 7.3 g/dL (5.7-8.2)
[2025-01-02 09:20] LABS: Blood Urea Nitrogen 8 mg/dL (9-23); Glucose 121 mg/dL (74-106)
== END | disposition home or self-care (01) ==
LOC: LAB 08:40
PROVIDERS: ATTEND Internal Medicine
DX: C61 Malignant neoplasm of prostate (principal)
CPT/HCPCS: 36415; 80053; 83615; 84153; 85025

== ENCOUNTER 2025-01-29 14:24 | Outpatient (CLI) | payer OTHER, MEDICAID ==
[2025-01-29 15:44] LABS: Alanine Aminotransferase 30.0 U/L (7-40); Albumin 4.6 g/dL (3.2-4.8); Alkaline Phosphatase 93.0 U/L (46-116); Bilirubin, Direct 0.2 mg/dL (<0.3); Bilirubin, Total 0.7 mg/dL (0.2-1.0); Total Protein 7.5 g/dL (5.7-8.2)
== END 2025-01-29 17:00 | disposition home or self-care (01) ==
LOC: LAB 14:24
PROVIDERS: ATTEND Internal Medicine Gastroenterology
DX: J44.89 Other specified chronic obstructive pulmonary disease (principal)
CPT/HCPCS: 36415; 80076

== ENCOUNTER → 2025-03-09 | Outpatient (CLI) | payer OTHER, MEDICAID ==
[2025-03-09 10:13] LABS: Hematocrit 42.4 % (41.0-53.0); Hemoglobin 14.1 g/dL (13.5-17.5); Mean Corpuscular Hemoglobin 26.8 pg (28.0-32.0); Mean Corpuscular Volume 80.7 fL (80.0-100.0); Nucleated Red Blood Cells % 0.1 %
[2025-03-09 10:24] LABS: Urine Protein, UAD Negative (Negative)
[2025-03-09 11:10] LABS: Iron 55.0 ug/dL (65-175)
[2025-03-09 11:13] LABS: Total Iron Binding Capacity 345.0 ug/dL (250-425)
[2025-03-09 11:16] LABS: Prostate Specific Antigen 0.02 ng/mL (0.0-4.0)
[2025-03-09 11:18] LABS: Ferritin 22.6 ng/mL (22-322)
[2025-03-09 11:34] LABS: Alanine Aminotransferase 18 U/L (7-40); Albumin 4.6 g/dL (3.2-4.8); Alkaline Phosphatase 86 U/L (46-116); Anion Gap 13 (5-15); BUN/Creatinine Ratio 12.3 (10.0-20.0); Bilirubin, Total 0.7 mg/dL (0.2-1.0); Blood Urea Nitrogen 10 mg/dL (9-23); Calcium 9.5 mg/dL (8.7-10.4); Carbon Dioxide 22 mmol/L (20-31); Chloride 105 mmol/L (98-107); Potassium 4.0 mmol/L (3.5-5.1); Sodium 140 mmol/L (136-145); Total Protein 7.6 g/dL (5.7-8.2)
[2025-03-09 11:35] LABS: Glucose 113 mg/dL (74-106)
== END | disposition home or self-care (01) ==
LOC: LAB 09:35
PROVIDERS: ATTEND Student in an Organized Health Care Education/Training Program
DX: C61 Malignant neoplasm of prostate (principal); I10 Essential (primary) hypertension; E11.9 Type 2 diabetes mellitus without complications; R32 Unspecified urinary incontinence
CPT/HCPCS: 36415; 80053; 81001; 82607; 82728; 83036; 83540; 83550; 84153; 84443; 85025